=== PATIENT | female | born 1955 | race Caucasian/White ===

== ENCOUNTER 2018-07-12 11:31 | Inpatient (IN) | payer OTHER, SELFPAY ==
[2018-07-12] MEDS ORDERED: Multivitamins, Adult 10 ML, Thiamine HCl 100 MG, Folic Acid 1 MG in Dextrose 5 %-0.45 %... IV SCH (12:00)
[2018-07-12 12:16] LABS: ALT (SGPT) 59 U/L (8-55); AST (SGOT) 158 U/L (5-34); Acetaminophen Less than 6.0 mcg/mL (10.0-30.0); Albumin 2.9 g/dL (3.4-4.8); Alcohol Less than 10 mg/dL (Less than 10); Alkaline Phosphatase 155 U/L (40-150); Anion Gap 26 mmol/L (10-20); BUN (Urea Nitrogen) 25 mg/dL (9.8-20.1); Bilirubin, Total 10.2 mg/dL (0.2-1.2); Calc. Creatinine Clearance 0 mL/min (70-130); Calcium 8.4 mg/dL (7.8-10.44); Carbon Dioxide 23 mmol/L (23-31); Chloride 88 mmol/L (98-107); Estimated GFR-MDRD 44; Globulin 4.6 g/dL (2.4-3.5); Glucose 137 mg/dL (80-115); Lipase 155 U/L (8-78); Protein, Total 7.5 g/dL (6.0-8.3); Salicylate Less than 8.0 mg/dL (15.0-30.0); Sodium 135 mmol/L (136-145)
[2018-07-12 12:20] LABS: Bilirubin Large (Negative); Blood, Urine Large (Negative); Clarity Cloudy (Clear); Glucose, Urine (Dipstick) Negative (Negative); Leukocyte Trace (Negative); Nitrite Negative (Negative); Protein, Urine (Dipstick) Trace mg/dL (Neg-Trace); pH, Urine 6.5 (5.0-9.0)
[2018-07-12 12:21] LABS: Other Microscopic Description Less than 2 mL rec'd
[2018-07-12 12:30] LABS: Hemoglobin 14.4 g/dL (12.0-16.0); Mean Corpuscular HGB CONC 31.5 g/dL (32.0-36.0); Mean Corpuscular Hemoglobin 30.9 pg (27.0-31.0); Mean Corpuscular Volume 98.3 fL (78.0-98.0); Mean Platelet Volume 9.9 fL (7.4-10.4); Platelet Count 71 thou/uL (130-400); RBC Distribution Width 16.4 % (11.5-14.5); Red Blood Cell (RBC) Count 4.64 mill/uL (4.20-5.40)
[2018-07-12 12:41] LABS: Amphetamine Not Detected (NotDetected); Barbiturates Screen Not Detected (NotDetected); Benzodiazepine Screen Not Detected (NotDetected); Cocaine Metabolite Screen Not Detected (NotDetected); Medtox Control Line Valid? VALID (VALID); Medtox Reader # READER 1; Methadone Not Detected (NotDetected); Methamphetamine Not Detected (NotDetected); Opiate Screen Not Detected (NotDetected); Oxycodone Screen Not Detected (NotDetected); Phencyclidine (PCP) Not Detected (NotDetected); THC/Cannabinoid Screen Not Detected (NotDetected); Tricyclic Screen Not Detected (NotDetected)
[2018-07-12 12:42] LABS: Band 20 % (5-11); Lymphocytes 12 % (21-51); MDiff Complete? YES; Monocytes 9 % (0-10); Neutrophil 56 % (42-75); Nucleated RBC 1 % (0); PLT Morphology Comment Appears Decreased; Polychromasia SLIGHT = 2-3 cells (100X) (0-2/hpf); Reactive Lymphocytes 3 % (0-10)
[2018-07-12] MEDS ORDERED: Lorazepam 2 MG/ML VIAL ONE (12:48)
--- NOTE | 2018-07-12 12:51 | CT ---
HEAD CT WITHOUT CONTRAST: DATE: 07/12/2018. COMPARISON: None. HISTORY: Unresponsive patient, altered mental status. TECHNIQUE: Axial CT imaging obtained at 5 mm intervals from the vertex through the skull base without contrast. FINDINGS: The imaged paranasal sinuses/mastoid air cells are well aerated. No displaced calvarial fracture. N o intracranial hemorrhage, midline shift, mass effect, or ventricular enlargement. IMPRESSION: No intracranial hemorrhage or displaced calvarial fracture. POS: [facility]
--- NOTE | 2018-07-12 12:59 | CT ---
CT CERVICAL SPINE WITHOUT CONTRAST: HISTORY: Altered mental status. COMPARISON: None. FINDINGS: The occipital condyles are intact. The odontoid process is intact. There is moderate narrowing of t he atlantodental interval with erosive changes. No acute fracture or malalignment of the cervical spine. Dense calcifications of the right carotid b ulb. Lung apices are clear. Paraspinal soft tissues demonstrate a nodule along the right neck axial image 35 which would be somewhat laterally located for the expected location of a lymph node. IMPRESSION: 1. No acute fracture or malalignment. 2. Superficial soft tissue nodule somewhat laterally located for a lymph node measuring 7 mm axial i mage 35 for which nonemergent ultrasound may be beneficial if clinically warranted. POS: [facility]
[2018-07-12] MEDS ORDERED: NS 0.9% w/ 40 MEQ KCL 1,000 ML IV SCH (13:00)
--- NOTE | 2018-07-12 13:15 | RAD ---
CHEST 1 VIEW: HISTORY: Altered mental status. COMPARISON: None. FINDINGS: Exam is limited due to overexposure. No acute airspace opacity. No pneumothorax or effusion. The r ight hand projects over the right hemithorax. Cardiac silhouette and mediastinal contours within nor mal limits. No acute displaced rib fracture. IMPRESSION: No acute intrathoracic abnormality given limitations of this exam. POS: [facility]
--- NOTE | 2018-07-12 14:07 | PDOC.FPRHP ---
- History of Present Illness Chief Complaint: AMS History of Present Illness: This is a 62yo F who presents to the ED by EMS after being found unresponsive by family. Patient was last seen normal on . Per EMS, she was found responsive but altered. A bottle of vodka was found and she is a known alcoholic. Due to patient's condition, further history was obtained via the sister who was at the bedside. The sister states that she found the sister only speaking in one word sentences and was very sluggish. The sister also told nursing that she had been going to the liquor store every 2-3 days recently. She states that her sister has struggled with alcoholism for quite some time. She states her sister was hospitalized about 1 year ago for AMS in [place] but did not know the circumstances and her presentation at that time. The patient also had a fall one week ago where she hit her right eyebrow but refused to go to the doctor. ED Course: 40mEq KCl,1mg lorazepam, banana bag, 1L NS - Allergies/Adverse Reactions Allergies Allergy/AdvReac Type Severity Reaction Status Date / Time No Known Drug Allergies Allergy Unverified 07/12/18 11:45 - History PMHx: stage4 liver dz, hep C, depression PSHx: ovarian cyst removal, hysterectomy FHx: unknown Social: per family drinks more than 10 drinks/day unable to obtain other hx - Review of Systems ROS unobtainable: due to mental status - Vital signs BP: 144/75 HR: 92 RR: 20 Tmax: 96.5 Pox: 100% on RA Wt: 49.8kg - Physical Exam Constitutional: other -Constitutional: malnourished, ill appearing female HEENT: other -HEENT: right periorbital hematoma w/ laceration on brow - dried blood present; sclera icteric, MM dry Neck: supple Heart: RRR, normal S1/S2, no murmurs/rubs/gallops, pulses present, no edema -Lungs: diminished breath sounds diffusely Abdomen: soft, non-tender, bowel sounds present, no masses/distention -Abdomen: no ascites present -Neurological: GCS 10, E3V2M5; unable to fully assess due to patient responsiveness -Heme/Lymphatic: multiple bruising on extremities FMR H&P: Results - Labs Result Diagrams: 07/13/18 05:12 07/13/18 05:12 Lab results: WBC 8.0 thou/uL (4.8-10.8) 07/12/18 11:49 Hgb 14.4 g/dL (12.0-16.0) 07/12/18 11:49 Hct 45.7 % (36.0-47.0) 07/12/18 11:49 MCV 98.3 fL (78.0-98.0) H 07/12/18 11:49 Plt Count 71 thou/uL (130-400) L 07/12/18 11:49 Band Neuts % (Manual) 20 % (5-11) H 07/12/18 11:49 Sodium 135 mmol/L (136-145) L 07/12/18 11:49 Potassium 2.0 mmol/L (3.5-5.1) L* 07/12/18 11:49 Chloride 88 mmol/L (98-107) L 07/12/18 11:49 Carbon Dioxide 23 mmol/L (23-31) 07/12/18 11:49 BUN 25 mg/dL (9.8-20.1) H 07/12/18 11:49 Creatinine 1.24 mg/dL (0.6-1.1) H 07/12/18 11:49 Glucose 137 mg/dL (80-115) H 07/12/18 11:49 Calcium 8.4 mg/dL (7.8-10.44) 07/12/18 11:49 Total Bilirubin 10.2 mg/dL (0.2-1.2) H 07/12/18 11:49 AST 158 U/L (5-34) H 07/12/18 11:49 ALT 59 U/L (8-55) H 07/12/18 11:49 Alkaline Phosphatase 155 U/L (40-150) H 07/12/18 11:49 Ammonia 56 umol/L (18-72) 07/12/18 11:49 Serum Total Protein 7.5 g/dL (6.0-8.3) 07/12/18 11:49 Albumin 2.9 g/dL (3.4-4.8) L 07/12/18 11:49 Lipase 155 U/L (8-78) H 07/12/18 11:49 Urine Ketones Trace mg/dL (Negative) H 07/12/18 11:55 Urine Blood Large (Negative) H 07/12/18 11:55 Urine Nitrite Negative (Negative) 07/12/18 11:55 Ur Leukocyte Esterase Trace (Negative) H 07/12/18 11:55 - EKG Interpretation EKG: normal sinus rhythm, biatrial enlargement, ST&T wave abnormality, prolonged QT 486 - Radiology Interpretation CT scan - head Status: report reviewed by me (no abnormalities) FMR H&P: A/P - Problem List (1) Hepatic encephalopathy Current Visit: Yes Status: Acute Code(s): K72.90 - HEPATIC FAILURE, UNSPECIFIED WITHOUT COMA (2) Hypokalemia Current Visit: Yes Status: Acute Code(s): E87.6 - HYPOKALEMIA (3) LEFTY (acute kidney injury) Current Visit: Yes Status: Acute Code(s): N17.9 - ACUTE KIDNEY FAILURE, UNSPECIFIED (4) Thrombocytopenia Current Visit: Yes Status: Acute Code(s): D69.6 - THROMBOCYTOPENIA, UNSPECIFIED (5) Hyperbilirubinemia Current Visit: Yes Status: Acute Code(s): E80.6 - OTHER DISORDERS OF BILIRUBIN METABOLISM (6) 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 Current Visit: Yes Status: Acute Code(s): K70.9 - ALCOHOLIC LIVER DISEASE, UNSPECIFIED (7) Alcoholism /alcohol abuse Current Visit: Yes Status: Acute Code(s): F10.20 - ALCOHOL DEPENDENCE, UNCOMPLICATED - Plan Hepatic encephalopathy 2/2 drug overdose vs alcohol withdrawal vs hypokalemia - Labs: ammonia 56, AST 160, ALT 60 - pt received banana bag and ativan in ED - will obtain ABG - Will give IVF - Will give lactulose enemas Q6hrs while monitoring mental status - ASE protocol initiated Hypokalemia - K 2.0 - Will monitor w/ daily CMP and replace as needed Fall - neg CT spine and brain CT neg Anion Gap - 26 - Will obtain ABG - Will give IVF and monitor Hyperbilirubinemia - Tbili 10.2 - GI consulted in the ED - no further management - Will monitor LEFTY - BUN/Cr 25/.24 - Will give IVF and continue to monitor Thrombocytopenia - plt 71 - likely due to liver dz - Will continue to monitor Hep C - aware, will obtain records to see if pt has been treated Alcohol abuse - see above Depression - aware, Will hold medications for now DISPO: admit to tele inpt CODE: FULL Case discussed with Dr. Longoria FMR H&P: Upper Level - Pertinent history 62F presenting after being found down by family earlier today. She has a history of end stage liver disease 2/2 Hep C and EtOH abuse who has been drinking heavily for at least the last week. EMS reports she had AMS and was brought to the ED. Upon arrival, patient was agitated and was given 1 mg of Ativan. Patient was responsive to simple commands but no history could be obtained during our examination. Sister reports patient was conversing in one word sentences and seemed more confused than normal. She says the patient has been going to the liquor store almost daily. Patient has a laceration above the right eyebrow. Sister reports this was present on of last week and was due to a traumatic fall. - Pertinent findings vital signs are stable- no concern for DT's Gen: fetor hepaticus HEENT: scleral icterus CV: RRR, no murmurs Resp: CTA-B Skin: jaundiced K: 2.0 Cl: 88 BUN/Cr: 25/1.24 T. bili: 10.2 AST/ALT: 158/59 albumin: 2.9 plasma EtOH: less than 10 All imaging negative - Plan Date/Time: 07/12/18 1401 Hepatic encephalopathy: ammonia normal but all other labs and physical exam consistent with end stage liver disease. Continue banana bag, maintenance IVF, lactulose enemas q6h. Once mentation improves we can transition to oral rifaximin. Precipitant likely multifactorial- hypokalemia, increased alcohol intake, and dehydration Hypokalemia: repleted in ED. Will replace BID and monitor with daily labs. Check Mag/Ph LEFTY: unknown prior kidney function. Will have received 3L of IVF from the ED. Monitor with daily labs. BUN is normal so low likelihood for GI bleed. Hyperbilirubinemia: 2/2 end stage liver disease. GI is aware and will follow while hospitalized. No further acute management at this time. I, Igor Clay, have evaluated this patient and agree with findings/plan as outlined by rn international resident. Pertinent changes/additions are listed here. Attending Addendum - Attending Addendum Date/Time: 07/13/18 0815 I personally evaluated the patient and discussed the management with Dr. Clay and Niall on 07/12 in the emergency department. I agree with and repeated the History, Examination, Assessment and Plan documented above with any addition or exceptions noted below. Patient rousable but lethargic. ALBERT. Laceration largely healed by secondary intention with persistent bruising and swelling. PERRL and icteric. RRR s M; CTAB s w/r/r. Abd soft and NTTP. Tx empirically for HE. Replete lytes. Anticipate AG d/t dehydration + chloride responsive dehydration due to what sounds like recent binging. No s/s of hemorrhage but anticipate quite volume down in light of azotemia and likely hemoconcentraion. Hep C with cirrhosis, elevated bili, and likely splenic sequestration. Would recommend RUQ sono and AFP if not done recently. I spoke with sister, Darlene, in detail at bedside. She says her sister has been admitted before for confusion when she lived in [place]. Several months ago they had a discussion and Lily told her that she did not want to be intubated or have compressions, confirming DNAR: NO RESUSCITATION.
[2018-07-12] MEDS ORDERED: Ondansetron PF 4 MG/2 ML Vial IVP PRN (17:34)
[2018-07-12] MEDS ORDERED: Ondansetron ODT 4 MG TAB PO PRN (17:34)
[2018-07-12 17:43] LABS: Phosphorus 2.4 mg/dL (2.3-4.7)
[2018-07-12] MEDS: Lactulose 10 GM/15 ML Oral Solution PR SCH (17:48)
[2018-07-12] MEDS: Lactated Ringer's 1,000 ML IV SCH (18:39)
[2018-07-12] MEDS ORDERED: Potassium Chloride 40 MEQ in Sodium Chloride 0.9% 250 ML 250 ML IVPB SCH (21:30)
[2018-07-12] MEDS ORDERED: Potassium ACETATE 40 MEQ/20 ML VIAL IV SCH (21:30)
[2018-07-13] MEDS: Lactulose 10 GM/15 ML Oral Solution PR SCH ×3 (02:11→09:25)
[2018-07-13 06:13] LABS: ALT (SGPT) 52 U/L (8-55); AST (SGOT) 172 U/L (5-34); Albumin 2.1 g/dL (3.4-4.8); Alkaline Phosphatase 115 U/L (40-150); Anion Gap 17 mmol/L (10-20); BUN (Urea Nitrogen) 18 mg/dL (9.8-20.1); Bilirubin, Total 7.3 mg/dL (0.2-1.2); Calc. Creatinine Clearance 51 mL/min (70-130); Calcium 7.2 mg/dL (7.8-10.44); Carbon Dioxide 19 mmol/L (23-31); Chloride 105 mmol/L (98-107); Estimated GFR-MDRD 65; Glucose 100 mg/dL (80-115); Lipase 191 U/L (8-78); Potassium 2.9 mmol/L (3.5-5.1); Protein, Total 6.1 g/dL (6.0-8.3); Sodium 138 mmol/L (136-145)
[2018-07-13] MEDS ORDERED: Potassium Chloride 40 MEQ in Premix Bag 1 BAG IVPB SCH (06:30)
[2018-07-13 06:51] LABS: Anisocytosis SLIGHT = 6-15 cells (100X) (0-5/hpf); Band 14 % (5-11); Eosinophils 1 % (0-10); Hemoglobin 12.4 g/dL (12.0-16.0); Lymphocytes 22 % (21-51); MDiff Complete? YES; Mean Corpuscular HGB CONC 31.5 g/dL (32.0-36.0); Mean Corpuscular Hemoglobin 32.4 pg (27.0-31.0); Mean Platelet Volume 11.2 fL (7.4-10.4); Monocytes 19 % (0-10); Myelocyte 1 % (0-0); Neutrophil 43 % (42-75); PLT Morphology Comment Appears Decreased; Platelet Count 43 thou/uL (130-400); RBC Distribution Width 16.5 % (11.5-14.5); Red Blood Cell (RBC) Count 3.82 mill/uL (4.20-5.40); White Blood Cell (WBC) Count 6.8 thou/uL (4.8-10.8)
[2018-07-13] MEDS ORDERED: Potassium Chloride 20 MEQ in Premix Bag 1 BAG IVPB SCH (07:00)
--- NOTE | 2018-07-13 07:10 | PDOC.FM ---
- Subjective Subjective: Overnight patient complained of pain on the buttox due to excoriations. Otherwise, patient resting comfortably in bed now. AXOX3. No complaints or concerns. - Objective Vital Signs & Weight: Vital Signs (12 hours) Temp Pulse Resp BP BP Pulse Ox 07/13/18 04:40 130/88 07/13/18 04:25 88 16 130/82 99 07/13/18 00:00 130/82 07/12/18 20:05 98.3 F 87 16 123/59 L 123/59 L 97 Weight Weight 49.487 kg I&O: 07/12/18 07/13/18 07/14/18 06:59 06:59 06:59 Intake Total 1200 Balance 1200 Result Diagrams: 07/13/18 05:12 07/13/18 05:12 Phys Exam - Physical Examination ill appearing female HEENT: PERRLA, moist MMs sclera icteric Neck: supple, full ROM Respiratory: clear to auscultation bilateral Cardiovascular: RRR, no significant murmur, no rub Gastrointestinal: soft, non-tender, no distention, positive bowel sounds Musculoskeletal: no edema, pulses present Neurological: non-focal Psychiatric: normal affect Dx/Plan (1) Hepatic encephalopathy Code(s): K72.90 - HEPATIC FAILURE, UNSPECIFIED WITHOUT COMA Status: Acute (2) Hypokalemia Code(s): E87.6 - HYPOKALEMIA Status: Acute (3) LEFTY (acute kidney injury) Code(s): N17.9 - ACUTE KIDNEY FAILURE, UNSPECIFIED Status: Acute (4) Thrombocytopenia Code(s): D69.6 - THROMBOCYTOPENIA, UNSPECIFIED Status: Acute (5) Hyperbilirubinemia Code(s): E80.6 - OTHER DISORDERS OF BILIRUBIN METABOLISM Status: Acute (6) 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 Code(s): K70.9 - ALCOHOLIC LIVER DISEASE, UNSPECIFIED Status: Acute (7) Alcoholism /alcohol abuse Code(s): F10.20 - ALCOHOL DEPENDENCE, UNCOMPLICATED Status: Acute - Plan Plan: Hepatic encephalopathy 2/2 drug overdose vs alcohol withdrawal vs hypokalemia - Labs: ammonia 56, AST 160, ALT 60 - repeat ammonia 62 - ABG: pH 7.5, CO2 31, bicarb 25 - mIVF, will give banana bag Qdaily, replace electrolytes as needed - Will give lactulose enemas Q6hrs while monitoring mental status; more alert on 07/13; will continue until mental status improved - ASE protocol initiated Hypokalemia - K 2.0->2.9 - Will replace and check 4-6hrs later - Will monitor w/ daily CMP and replace as needed Fall - neg CT spine and brain CT neg Anion Gap - 26 - ABG showing resp alk, will continue to monitor - Will give IVF and monitor Hyperbilirubinemia - Tbili 10.2-> 7.3 - GI consulted in the ED - no further management - Will monitor LEFTY, resolved - BUN/Cr 25/1.24; Cr -> 0.88 - Will give IVF and continue to monitor Thrombocytopenia - plt 71-> 43 - likely due to liver dz - Will continue to monitor Hep C - aware, will obtain records to see if pt has been treated Alcohol abuse - see above Depression - aware, Will hold medications for now DISPO: admit to tele inpt CODE: FULL
[2018-07-13] MEDS ORDERED: Boudreaux's Butt Paste 16% Oin 30 GM TUBE TOP PRN (07:11)
[2018-07-13] MEDS: Potassium Chloride 20 MEQ in Premix Bag 1 BAG IVPB SCH ×2 (08:10→11:00)
[2018-07-13] MEDS: Lactated Ringer's 1,000 ML IV SCH ×2 (08:17→14:44)
[2018-07-13 08:19] LABS: Actual Bicarbonate (HCO3a) 25.8 mEq/L (22-28); Base Excess (BEa) 3.5 mEq/L (-2.0 to +3.0); CO2 Tension 31.4 mmHg (35.0-45.0); Carboxyhemoglobin (COHb) 0.9 gm% (0.0-3.0); Hemoglobin (Hb) 11.6 g/dL (12.0-16.0); pH, Arterial 7.53 (7.35-7.45)
[2018-07-13 08:20] LABS: Calcium, Ionized 0.97 mmol/L (1.12-1.30); Potassium - ABG Lab 1.98 mmol/L (3.70-5.30); Puncture Site RRA
[2018-07-13] MEDS: Pantoprazole 40 MG VIAL IVP SCH (09:27)
[2018-07-13] MEDS: Multivitamins, Adult 10 ML, Folic Acid 1 MG, Thiamine HCl 100 MG in Dextrose 5 %-0.45 %... IV SCH (11:03)
[2018-07-13] MEDS ORDERED: Ketorolac Tromethamine 10 MG TAB PO SCH (12:00)
[2018-07-13 12:47] LABS: Anion Gap 13 mmol/L (10-20); BUN (Urea Nitrogen) 17 mg/dL (9.8-20.1); Calc. Creatinine Clearance 58 mL/min (70-130); Calcium 7.2 mg/dL (7.8-10.44); Carbon Dioxide 22 mmol/L (23-31); Chloride 108 mmol/L (98-107); Estimated GFR-MDRD 76; Glucose 105 mg/dL (80-115); Potassium 3.1 mmol/L (3.5-5.1); Sodium 140 mmol/L (136-145)
[2018-07-13] MEDS: Ketorolac Tromethamine 30 MG/ML VIAL IVP SCH ×2 (12:57→17:12)
--- NOTE | 2018-07-13 13:06 | PRG ---
DATE OF SERVICE: 07/13/2018 ADDENDUM: This is an addendum to the note of Dr. Ivanna Tierney. Ms. Hendrix is a very unfortunate 62-year-old white female with a history of alcoholic cirrhosis. She presented with hepatic encephalopathy. Interestingly, she does not have ascites. We are treating her encephalopathy with lactulose, and this morning, she is mentally more clear than last evening. Job ID: [id number]
[2018-07-13 13:10] LABS: HBCM Index 0.14 S/CO (0-0.79); Hep A IgM AB Non-Reactive (NonReactive); Hep B Surf Ag Non-Reactive S/CO (NonReactive); Hepatitis B Core IgM Abs Non-Reactive (NonReactive)
[2018-07-13] MEDS ORDERED: Potassium Chloride 20 MEQ TAB PO SCH (13:45)
[2018-07-13] MEDS ORDERED: Calcium Citrate 950 MG TAB PO SCH (14:00)
[2018-07-13 15:23] LABS: HBSAg Index 0.29 S/CO (0-0.99)
[2018-07-13 15:25] LABS: Hep A IgM S/CO 0.33 S/CO (0-0.79)
[2018-07-13 16:10] LABS: Hep C IgG Ab Reflex HepC Qnt (NonReactive)
[2018-07-13 16:11] LABS: Hep C Index 7.64 S/CO (0-0.79)
[2018-07-13 18:08] LABS: Anion Gap 17 mmol/L (10-20); BUN (Urea Nitrogen) 17 mg/dL (9.8-20.1); Calc. Creatinine Clearance 54 mL/min (70-130); Calcium 7.3 mg/dL (7.8-10.44); Carbon Dioxide 16 mmol/L (23-31); Chloride 108 mmol/L (98-107); Estimated GFR-MDRD 69; Glucose 116 mg/dL (80-115); Sodium 139 mmol/L (136-145)
[2018-07-13 18:15] LABS: Potassium 2.4 mmol/L (3.5-5.1)
[2018-07-13] MEDS ORDERED: Potassium ACETATE 40 MEQ/20 ML VIAL IV ONE (19:17)
[2018-07-13] MEDS ORDERED: Magnesium Sulfate 4 GM, Potassium Chloride 40 MEQ in Sodium Chloride 0.9% 500 ML IVPB SCH (20:00)
[2018-07-13] MEDS: Rifaximin 550 MG TAB PO SCH (20:38)
[2018-07-13 21:57] LABS: Bilirubin Large (Negative); Blood, Urine Moderate (Negative); Clarity CLOUDY (Clear); Glucose, Urine (Dipstick) Negative (Negative); Leukocyte Small (Negative); Nitrite Positive (Negative); Protein, Urine (Dipstick) Negative (Neg-Trace); Specific Gravity, Urine 1.019 (1.002-1.036)
[2018-07-13 21:59] LABS: Bacteria/HPF None Seen HPF (None Seen)
[2018-07-13 22:03] LABS: Pathc Cast-AUWi Flag 8.28 (0-2.49)
[2018-07-13 22:11] LABS: Transitional Epithelial 0-3 HPF (0-3); Yeast-All Forms None Seen HPF (None Seen)
[2018-07-13 22:12] LABS: Crystals/HPF None Seen HPF (Negative); Hyaline Casts/LPF 0-3 HYALINE CAST LPF (0-3 Hyaline)
[2018-07-14] MEDS: Ketorolac Tromethamine 30 MG/ML VIAL IVP SCH ×2 (00:44→05:44)
[2018-07-14 01:39] LABS: Anion Gap 14 mmol/L (10-20); BUN (Urea Nitrogen) 16 mg/dL (9.8-20.1); Calc. Creatinine Clearance 57 mL/min (70-130); Carbon Dioxide 17 mmol/L (23-31); Chloride 106 mmol/L (98-107); Estimated GFR-MDRD 74; Glucose 110 mg/dL (80-115); Potassium 3.7 mmol/L (3.5-5.1); Sodium 133 mmol/L (136-145)
--- NOTE | 2018-07-14 02:06 | CON ---
DATE OF CONSULTATION: 07/13/2018 REASON FOR CONSULT: Difficult Perez catheter placement per nursing staff. HISTORY OF PRESENT ILLNESS: Ms. Hendrix is a 62-year-old female, admitted to the Family Medicine Service with history of alcohol abuse and hepatic encephalopathy. I reviewed records to obtain history as she is a poor historian. She is a known alcoholic, a bottle of vodka was found at her home. Due to mental status changes, the patient admitted. She was found to have a sacral decubitus ulcer with urinary incontinence, therefore, Perez catheter was ordered by the primary service. Nursing staff attempted multiple attempts, however, unable to place Perez catheter. She denies history of retention. Has been incontinent of urine with mental status changes. PAST MEDICAL HISTORY: Stage IV liver disease, hepatitis C, and depression. PAST SURGICAL HISTORY: Ovarian cyst removal and hysterectomy. FAMILY HISTORY: Unknown. SOCIAL HISTORY: History of alcohol abuse, 10 drinks per day. The patient is a poor historian. Currently, her vital signs are stable. ALLERGIES: NO KNOWN DRUG ALLERGIES. PHYSICAL EXAMINATION: VITAL SIGNS: Stable. GENERAL: The patient has a bright ecchymosis over her orbit. HEART: Regular rate. LUNGS: Clear. ABDOMEN: Soft. EXTREMITIES: No cyanosis, clubbing, or edema. GENITOURINARY: Severe vaginal atrophy. It required 2 nurse assist with me to place a Perez catheter as the patient is somewhat combative. Using finger-guided cyst, I was able to see the urethral meatus, it appeared to be somewhat stenotic. However, with appropriate finger-guide assist, I was able to pass a 16-[place]er Perez catheter without significant issues. No significant postvoid residual. However, urine is anil-colored consistent with her history of liver cirrhosis. LABORATORY DATA: Pertinent labs, white count 6, hemoglobin 12, and platelet count is 43. Creatinine 0.8. Liver enzymes are elevated consistent with cirrhosis. UA on admission, dark yellow, negative nitrites, and trace leukocytes. Urine tox screen demonstrates positive for salicylates and acetaminophen. Plasma alcohol level less than 10. Hepatitis panel demonstrates positive for hepatitis C antibody. IMPRESSION AND PLAN: Ms. Hendrix is a 62-year-old female with history of liver cirrhosis and history of alcohol abuse, admitted for hepatic encephalopathy with thrombocytopenia chronic due to liver disease. 1. Alcoholism, chronic. 2. Sacral decubitus ulcer with urinary incontinence. Primary service requesting indwelling Perez catheter as incontinence is resulting in non-progression of her wound. 3. Bedside procedure: As above, a 16-[place]er Perez catheter was placed. Would leave indwelling Perez catheter, until the patient's mental status is improved. When she has regained her baseline mental status, voiding trial may be initiated per . We will follow wandy landa. Job ID: [id number]
--- NOTE | 2018-07-14 04:57 | CON ---
DATE OF CONSULTATION: 07/13/2018 REASON FOR CONSULTATION: Altered mental status, cirrhosis. CONSULTING PHYSICIAN: Dr. Ivanna Tierney. HISTORY OF PRESENT ILLNESS: The patient is a 62-year-old female with past medical history of chronic hepatitis C infection, depression, alcohol dependence, and presumably alcoholic cirrhosis, initially presenting with complaints of altered mental status. Upon interview of the patient today, she was alert and oriented x2, but unable to contribute meaningful information in terms of her history with the information obtained being primarily from chart review. Per chart review, the patient was found unresponsive by family and ultimately brought to [facility] for evaluation. At the time of evaluation within the ER, she was obtunded and unable to provide any meaningful information. However, per interview with the family, the patient had been continuing to drink significant amount of alcohol despite the diagnosis of cirrhosis with a prior history of being hospitalized in [place] approximately 1 year ago for similar altered mental status, but outcome of that admission is not known at this time. She was ultimately admitted to [facility] for further evaluation and given the high likelihood of hepatic encephalopathy, she was given lactulose enemas with improvement in her mental status. Today, the patient is alert and oriented x2, possibly 3. She is unable to answer meaningful questions to her current clinical status, but as to what led up to her being in the hospital she could not further elucidate. Currently, she denies any nausea, vomiting, fevers, chills, abdominal pain, GI bleeding, dysphagia, odynophagia, constipation, or diarrhea. Per nursing staff, they had been giving her lactulose enemas with some difficulty overnight, but with improvement of her mental status, she has been able to tolerate some oral intake and were transitioning most of her medications over. REVIEW OF SYSTEMS: A 10-category review of systems was obtained with all responses negative except for the pertinent positives as listed in the HPI. PAST MEDICAL HISTORY: As per HPI. PAST SURGICAL HISTORY: Hysterectomy, ovarian cyst removal. FAMILY HISTORY: Unknown. SOCIAL HISTORY: The patient currently denies any tobacco, alcohol, or illicit drug use, but per chart review, the patient was drinking anywhere between 1 to 10 drinks per day with possible vodka consumption. OUTPATIENT MEDICATIONS: Unable to be reviewed. ALLERGIES: NO KNOWN DRUG ALLERGIES. PHYSICAL EXAMINATION: VITAL SIGNS: Temperature 97.8, pulse 82, blood pressure 132/82, respiratory rate 15, and saturating 98% on room air. GENERAL: The patient was lying in bed, in no acute distress, alert and oriented x2. HEENT: Neck is supple. No JVD noted. However, moderate scleral icterus was noted. CARDIOVASCULAR: Regular rate and rhythm with no discernible murmurs, gallops, or rubs. RESPIRATORY: Clear to auscultation bilaterally with no discernible wheezes or rales. ABDOMEN: Normoactive bowel sounds. Soft, nontender, and nondistended. No evidence of abdominal distention or shifting dullness on examination today. EXTREMITIES: No cyanosis, clubbing, or edema. LABORATORY DATA: CBC with a white blood cell count of 6.8, hemoglobin 12.4, hematocrit 39.2, and platelets 43. Chemistry with a sodium of 140, potassium 3.1, chloride 108, CO2 of 22, BUN 17, creatinine 0.77, and glucose 105. AST 172, ALT 52, alkaline phosphatase 115. Total bilirubin 7.3. Albumin 2.1, lipase 191, ammonia 62. IMAGING DATA: CT of the brain obtained on 07/12/2018 showed no intracranial hemorrhage or displaced calvarial fracture contributing to her altered mental status. ASSESSMENT AND PLAN: The patient is a 62-year-old female with past medical history of chronic hepatitis C infection, depression, alcohol dependence/alcoholism, and alcoholic cirrhosis of the liver, presenting with altered mental status, most likely due to hepatic encephalopathy. Cirrhosis. The patient is presenting with prior diagnosis of cirrhosis of liver that the patient states was made approximately 10 years ago. Another diagnosis was made, it is unclear at this time; however, given her thrombocytopenia, and elevated noninvasive markers , (FIB-4 and APRI scores), the likelihood of cirrhosis is high. At this point in time, she is presenting with elevated AST in a 3:1 distribution when compared to ALT consistent with alcohol hepatitis, further contributing to liver dysfunction secondary to cirrhosis. At this time, I am unable to calculate MELD score for Child-Cuellar classification due to lack of INR during this admission, which could provide insight in terms of her long-term prognosis. At this point , I do not see any imaging within the computer system either confirming this cirrhotic morphology or cirrhosis of liver or even possible hepatocellular carcinoma that could have potentially contributed to hepatic encephalopathy and/or altered mental status. At this point in time, she is presenting with decompensated liver disease, given presence of hepatic encephalopathy that is currently responding to lactulose administration. Then, we will require further maintenance as an outpatient beyond this admission. Recommendations; 1. We would obtain serial chemistries daily including bilirubin, CMPs and INRs daily to further evaluate for worsening liver function. 2. We would continue to monitor her mental status with worsening of her mental status despite therapy, possibly indicative of worsening liver function. 3. We would consider obtaining a right upper quadrant ultrasound for evaluation of the liver parenchyma and/or presence of possible hepatocellular carcinoma. Hepatic encephalopathy. The patient is initially presenting with altered mental status in light of prior diagnosis of cirrhosis, consistent with hepatic encephalopathy despite a relatively low ammonia level, now status post obtaining multiple lactulose enemas and significant improvement in her mental status with this therapeutic modality. Given her improvement in mental status and ability to tolerate p.o., lactulose administration by mouth is indicated. 1. We would start the patient on lactulose 30 mL b.i.d. and titrate to the patient having approximately 3 to 4 bowel movements daily. 2. We would continue to monitor the patient's mental status with serial sensorium exams daily. 3. We would avoid any potential hepatotoxin or sedative type medications. Chronic hepatitis C infection. The patient is presenting with stated history of chronic hepatitis C infection with laboratory testing during this admission consistent with hepatitis C antibody; however, prior to any treatment for this particular condition, she would need both viral load and genotype, which can be performed as an outpatient. Recommendations: 1. When the patient discharged from the hospital, would have the patient followup in the GI clinic for evaluation of viral load and genotype prior to treatment initiation. Alcoholic hepatitis. The patient is presenting with a longstanding history of alcohol dependence as well as recent altered mental status, most likely due to hepatic encephalopathy. However, on admission, she was noted to have significantly elevated AST when compared to ALT in approximately 3:1 distribution consistent with alcoholic hepatitis. She also has a significantly elevated total bilirubin consistent with liver dysfunction in association with the alcoholic hepatitis. However, with more conservative measures, her total bilirubin and LFTs are downtrending indicating good response to treatment. Given studies within the recent years showing no additional benefit with either prednisolone or pentoxifylline in cases of alcoholic hepatitis. I would not initiate either treatments at this time, but would continue conservative management as you are doing. Recommendations;. 1. We would continue IV fluid support with thiamine and/or B12 during this admission. Banana bag is not necessarily needed for alcoholic hepatitis. 2. We would obtain serial comprehensive metabolic panels on her daily to assess for resolution of her transaminitis. 3. Withhold any steroids or pentoxifylline in this particular patient's case given lack of literature showing it is a long-term decrease in mortality. We will continue to follow. Please call with any questions. Job ID: [id number] MTDD
[2018-07-14 05:30] LABS: INR-International Normal Ratio 2.6; Prothrombin Time 27.7 SEC (12.0-14.7)
[2018-07-14 06:02] LABS: ALT (SGPT) 48 U/L (8-55); AST (SGOT) 154 U/L (5-34); Albumin 1.8 g/dL (3.4-4.8); Alkaline Phosphatase 120 U/L (40-150); Anion Gap 11 mmol/L (10-20); BUN (Urea Nitrogen) 16 mg/dL (9.8-20.1); Bilirubin, Total 5.9 mg/dL (0.2-1.2); Calc. Creatinine Clearance 62 mL/min (70-130); Carbon Dioxide 18 mmol/L (23-31); Chloride 108 mmol/L (98-107); Estimated GFR-MDRD 82; Globulin 2.9 g/dL (2.4-3.5); Glucose 94 mg/dL (80-115); Protein, Total 4.7 g/dL (6.0-8.3); Sodium 134 mmol/L (136-145)
[2018-07-14 06:07] LABS: Potassium 2.9 mmol/L (3.5-5.1)
[2018-07-14 06:22] LABS: Band 23 % (5-11); Eosinophils 4 % (0-10); Hemoglobin 10.5 g/dL (12.0-16.0); Lymphocytes 37 % (21-51); MDiff Complete? YES; Mean Corpuscular HGB CONC 33.2 g/dL (32.0-36.0); Mean Corpuscular Hemoglobin 33.4 pg (27.0-31.0); Mean Platelet Volume 10.2 fL (7.4-10.4); Monocytes 10 % (0-10); Myelocyte 1 % (0-0); Neutrophil 25 % (42-75); PLT Morphology Comment Appears Decreased; Platelet Count 31 thou/uL (130-400); RBC Distribution Width 16.2 % (11.5-14.5); Red Blood Cell (RBC) Count 3.14 mill/uL (4.20-5.40); White Blood Cell (WBC) Count 5.2 thou/uL (4.8-10.8)
--- NOTE | 2018-07-14 06:50 | PDOC.FM ---
- Subjective Subjective: No overnight events. Patient has no complaints or concerns on exam. - Objective Vital Signs & Weight: Vital Signs (12 hours) Temp Pulse Resp BP BP Pulse Ox 07/14/18 04:00 98.0 F 70 20 95/54 L 95/54 L 07/13/18 20:00 97.6 F 87 18 122/81 122/81 97 07/13/18 19:56 97.9 F 110 H 20 126/60 92 L Weight Admit Weight 48.308 kg Weight 49.487 kg I&O: 07/12/18 07/13/18 07/14/18 06:59 06:59 06:59 Intake Total 1200 Balance 1200 Result Diagrams: 07/14/18 04:50 07/14/18 04:50 Phys Exam - Physical Examination ill appearing female HEENT: PERRLA, moist MMs sclera icteric Neck: supple, full ROM Respiratory: clear to auscultation bilateral Cardiovascular: RRR, no significant murmur, no rub Gastrointestinal: soft, non-tender, no distention, positive bowel sounds Musculoskeletal: no edema, pulses present Neurological: non-focal Psychiatric: A&O x 3 Skin: no rash Dx/Plan (1) Hepatic encephalopathy Code(s): K72.90 - HEPATIC FAILURE, UNSPECIFIED WITHOUT COMA Status: Acute (2) Hypokalemia Code(s): E87.6 - HYPOKALEMIA Status: Acute (3) LEFTY (acute kidney injury) Code(s): N17.9 - ACUTE KIDNEY FAILURE, UNSPECIFIED Status: Acute (4) Thrombocytopenia Code(s): D69.6 - THROMBOCYTOPENIA, UNSPECIFIED Status: Acute (5) Hyperbilirubinemia Code(s): E80.6 - OTHER DISORDERS OF BILIRUBIN METABOLISM Status: Acute (6) 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 Code(s): K70.9 - ALCOHOLIC LIVER DISEASE, UNSPECIFIED Status: Acute (7) Alcoholism /alcohol abuse Code(s): F10.20 - ALCOHOL DEPENDENCE, UNCOMPLICATED Status: Acute - Plan Plan: Hepatic encephalopathy 2/2 drug overdose vs alcohol withdrawal vs hypokalemia - Labs: ammonia 56, AST 160, ALT 60 - repeat ammonia 62 - ABG: pH 7.5, CO2 31, bicarb 25 - mIVF, will give banana bag Qdaily, replace electrolytes as needed - Changed to lactulose PO and rifaximen; pt more alert - ASE protocol initiated - [facility] consulted -pt denies depression/suicidal ideations, but sister concerned and thinks she may be suicidal - Palliative care consulted - symptom management - MELD score: 26 - 19.6% estimated 3 month mortality Hypokalemia - K 2.0->2.9 - Will replace and check 4-6hrs later - Will monitor w/ daily CMP and replace as needed Sacral Decubitus Ulcer - tramdol for pain - colindres placed while wound heals; assisted w/ placement; appreciate recs - Urine cx pending - Wound care consulted Fall - neg CT spine and brain CT neg Anion Gap - ABG showing resp alk, will continue to monitor - Will give IVF and monitor Hyperbilirubinemia - Tbili 10.2-> 7.3 -> 5.9 - GI consulted in the ED - no further management - Will monitor LEFTY, resolved - BUN/Cr 25/1.24; Cr -> 0.88 - Will give IVF and continue to monitor Thrombocytopenia - plt 71-> 43 -> 31 - likely due to liver dz - Will continue to monitor - Will consider plt transfusion Hep C - Hep panel pos for Hep C, negative for Hep A/B - Will order Hep C RNA - GI consulted - appreciate recommendations - RUQ pending to evaluate for carcinoma of liver; AFP pending Alcohol abuse - see above - will counseling center manager cessation - Palliative care consulted Depression - aware, Will hold medications for now - [facility] consulted DISPO: admit to tele inpt CODE: FULL
[2018-07-14] MEDS ORDERED: Potassium Chloride 20 MEQ TAB PO SCH (07:00)
[2018-07-14 08:25] LABS: Phosphorus 1.2 mg/dL (2.3-4.7)
[2018-07-14] MEDS: Pantoprazole 40 MG VIAL IVP SCH (08:58)
[2018-07-14] MEDS: Cyanocobalamin (Vitamin B-12) 1,000 MCG TAB PO SCH (08:58)
[2018-07-14] MEDS: Multivitamins, Adult 10 ML, Folic Acid 1 MG, Thiamine HCl 100 MG in Dextrose 5 %-0.45 %... IV SCH (08:59)
[2018-07-14] MEDS: Rifaximin 550 MG TAB PO SCH (09:01)
--- NOTE | 2018-07-14 09:35 | PRG ---
DATE OF SERVICE: 07/14/2018 SUBJECTIVE: The patient appears to be more alert since I saw her last evening. Coherent, alert, oriented. OBJECTIVE: VITAL SIGNS: Stable. Strict I's and O's are not documented. ABDOMEN: Soft, nontender, nondistended. : Perez catheter draining uneventfully, anil yellow urine. PERTINENT LABORATORY DATA: White count 5, hemoglobin of 10.5, platelet count of 31,000. INR is 2.6. Creatinine is 0.72. UA from Perez catheter, which appears contaminated, 11 to 20 squamous epithelials, nitrite positive, 7 to 10 rbc's, 46 wbc's, no bacteria seen. Culture is pending. IMPRESSION AND PLAN: Ms. Hendrix is a 62-year-old female with: 1. History of stage IV liver disease. 2. Hepatitis C. 3. Alcohol abuse. 4. Current admission due to hepatic encephalopathy. 5. Severe thrombocytopenia due to liver disease, elevated INR, coagulopathy. Perez catheter was requested by Primary Service to divert urine as she is currently incontinent due to mental status changes with sacral decubitus ulcer. She appears to be more alert today. I discussed with the patient that catheter will remain until she is more alert, and able to ambulate out of bed. She denies having issues with incontinence, otherwise. She appears to be more self aware today. Plan is to remove the Perez catheter when patient's mental status is improved, to have bathroom privileges. The Perez catheter was difficult to be placed by nursing staff due to severe vaginal atrophy and mild urethral stenosis, I was able to pass a 16-Tunisian catheter without significant obstruction. Do not remove Perez catheter unless it is okay with . We will follow pliz Job ID: [id number]
--- NOTE | 2018-07-14 10:08 | ULT ---
RIGHT UPPER QUADRANT ULTRASOUND: DATE: 07/14/2018. COMPARISON: None. HISTORY: Hepatitis C, alcohol abuse. TECHNIQUE: Multiplanar, cohen scale, sonographic imaging of the right upper quadrant obtained. FINDINGS: The imaged pancreas is grossly unremarkable. The tail is obscured by bowel gas. The hepatic parenchyma is heterogeneous and echogenic within irregular peripheral margin suspicious f or cirrhosis given history of hepatitis C. Portions of the liver are obscured by bowel gas. There i s small volume perihepatic ascites present. Common bile duct measures 3 mm, within normal limits. Provided imaging of the portal vein demonstrates hepatopetal flow. There is sludge within the gallbladder as well as numerous gallstones. The hooker operator reports a neg ative Roper's sign. Gallbladder wall thickness is upper limits of normal which could be related to liver disease. The right kidney measures 11.2 cm craniocaudal dimension and demonstrates no stone, h ydronephrosis, or mass. There is trace ascites in right lower quadrant. Partially imaged spleen measures up to 12.9 cm. No significant free fluid is seen in the left upper quadrant, left lower quadrant, or midline abdomen. IMPRESSION: 1. Cirrhotic configuration of the liver with right upper quadrant ascites. 2. Gallbladder contains stones and sludge. 3. The hepatic parenchyma could be better assessed via MRI of abdomen with and without contrast. POS: JOSE
[2018-07-14 14:08] LABS: Anion Gap 16 mmol/L (10-20); BUN (Urea Nitrogen) 17 mg/dL (9.8-20.1); Calc. Creatinine Clearance 54 mL/min (70-130); Calcium 7.4 mg/dL (7.8-10.44); Carbon Dioxide 16 mmol/L (23-31); Chloride 105 mmol/L (98-107); Estimated GFR-MDRD 68; Glucose 118 mg/dL (80-115); Sodium 134 mmol/L (136-145)
[2018-07-14 14:21] LABS: Potassium 2.9 mmol/L (3.5-5.1)
--- NOTE | 2018-07-14 14:28 | PRG ---
DATE OF SERVICE: 07/14/2018 SUBJECTIVE: Ms. Hendrix continues to remain alert, a vast improvement over her admission obtundation. Right upper quadrant ultrasound is consistent with probable cirrhosis. We also very much appreciate the recommendations of the GI Service. We are continuing with the lactulose. We are continuing with potassium replacement. Job ID: [id number]
[2018-07-14] MEDS ORDERED: Potassium Chloride 40 MEQ in Sodium Chloride 0.9% 500 ML IVPB SCH (14:45)
[2018-07-14] MEDS: traMADol HCl 50 MG TAB PO PRN (14:56)
--- NOTE | 2018-07-14 15:29 | EKG ---
Test Reason : Blood Pressure : / mmHG Vent. Rate : 095 BPM Atrial Rate : 095 BPM P-R Int : 140 ms QRS Dur : 074 ms QT Int : 486 ms P-R-T Axes : 085 014 071 degrees QTc Int : 610 ms Normal sinus rhythm Biatrial enlargement Prolonged QT Abnormal ECG Confirmed by GILDARDO GRAY, MARTY ([id number]), design editor TASHA POSADA ([id number]) on 07/14/2018 3:28:58 PM Referred By: Confirmed By:MARTY EWING MD
[2018-07-14] MEDS: Potassium Chloride 20 MEQ TAB PO SCH (17:38)
--- NOTE | 2018-07-14 18:28 | PRG ---
DATE OF SERVICE: 07/14/2018 REASON FOR CONSULTATION: Cirrhosis, hepatic encephalopathy. SUBJECTIVE: Per patient and per nursing staff, she has been doing much better today with no acute events or problems overnight. Concerning her sensorium, the nursing staff endorses that she is much more "with it." When compared to yesterday, being able to answer questions appropriately and in proper time. She does have some lower back pain that she complains of today, but feels it is more related to inactivity and remaining in bed all day and rather than in exacerbation of other illness. Currently, she denies any nausea, vomiting, fevers, chills, abdominal pain, GI bleeding, dysphagia, odynophagia, constipation, or diarrhea. She has had approximately three semi-solid bowel movements today with administration of lactulose. OBJECTIVE: VITAL SIGNS: Temperature 98.1, pulse 86, blood pressure 116/60, respiratory rate 16, and saturating 97% on room air. GENERAL: The patient is lying in bed, in no acute distress. Alert and oriented x3/4. CARDIOVASCULAR: Regular rate and rhythm. RESPIRATORY: Clear to auscultation bilaterally. ABDOMEN: Normoactive bowel sounds. Soft, nontender, and nondistended. EXTREMITIES: No cyanosis, clubbing, or edema. LABORATORY DATA: CBC with a white blood cell count of 5.2, hemoglobin 10.5, hematocrit 31.5, and platelets are 31. INR 2.6. Chemistry with a sodium of 134, potassium of 2.9, chloride of 108, CO2 of 18, BUN of 16, creatinine of 0.72, and glucose of 94. AST 154, ALT 48, alkaline phosphatase 120, and total bilirubin 5.9. Calculated MELD score of 26. IMAGING DATA: Abdominal ultrasound obtained on July 14, 2018 showed heterogeneous hepatic parenchyma that was also echogenic with irregular peripheral margin consistent with cirrhotic morphology. There was also small volume perihepatic ascites present. There was no evidence of biliary dilatation. Although, there was sludge within the gallbladder as well as numerous gallstones. There was no evidence of acute or chronic cholecystitis. ASSESSMENT AND PLAN: The patient is a 62-year-old female with past medical history of chronic hepatitis C infection, depression, alcohol dependence/alcoholism and alcoholic cirrhosis of the liver complicated by hepatic encephalopathy, presenting with altered mental status, most likely due to hepatic encephalopathy. Cirrhosis. The patient is presenting with a prior diagnosis of cirrhosis of the liver, per patient, again was made approximately 10 years ago with unknown presentation at that time; however, given the cirrhotic morphology on imaging, thrombocytopenia and elevated noninvasive markers, (FIB-4 and APRI scores), the likelihood of cirrhosis is high. At this point, the etiology of her cirrhosis could be multifactorial, either being by chronic hepatitis C infection versus chronic alcoholism. Given the AST to ALT distribution on this admission, alcoholic hepatitis is likely being further contributing to her further hepatic dysfunction as seen on labs during this admission. At this time given a MELD score of 26, it does carry a poor 90-day prognosis, but will need continued monitoring over the next few days to determine whether or not this improves. Right upper quadrant ultrasound obtained on July 14, 2018 did not show any evidence of hepatocellular carcinoma, but rather only cirrhotic morphology with a minimal amount of perihepatic ascites. Recommendations: 1. We would continue to obtain serial chemistries daily including bilirubin and INR to further evaluate for possible worsening liver function. 2. We would continue serial neurological exams daily for worsening of her altered mental status, which could be a harbinger of worsening liver function. Hepatic encephalopathy. The patient initially presented with altered mental status in light of a diagnosis of cirrhosis that has been responding well to lactulose administration. Currently having approximately three semi-solid bowel movements within the last 24 hours, which does place her at goal therapy for ammonia elimination. Recommendations: 1. We would continue the patient on lactulose 30 mL twice daily and titrate if the patient having approximately 3 to 4 bowel movements daily. 2. Continue to monitor the patient's mental status with serial sensorium exams daily. 3. We would avoid any potential hepatotoxin or sedative type medications. Alcoholic hepatitis. The patient has a longstanding history of alcohol dependence with labs on admission showing AST to ALT distribution of approximately 3:1, consistent with alcoholic hepatitis. She also has a significantly elevated total bilirubin consistent with liver dysfunction and associated with this particular diagnosis. With more conservative measures however, her total bilirubin and LFTs are down trending indicating good response to treatment. At this time, there is no plans to place the patient on any further adjunctive therapies including steroids or pentoxifylline given lack of evidence towards efficacy. Recommendations: 1. We would continue IV fluid support, but I could transfer patient to oral thiamine and/or B12 given her ability to tolerate p.o. at this time. 2. Continue to obtain serial comprehensive metabolic panel daily to assess for resolution of her transaminitis. We will continue to follow. Please call with any questions. Job ID: [id number]
[2018-07-14 19:54] LABS: Anion Gap 12 mmol/L (10-20); BUN (Urea Nitrogen) 16 mg/dL (9.8-20.1); Calc. Creatinine Clearance 54 mL/min (70-130); Calcium 7.4 mg/dL (7.8-10.44); Carbon Dioxide 19 mmol/L (23-31); Chloride 103 mmol/L (98-107); Estimated GFR-MDRD 68; Glucose 90 mg/dL (80-115); Potassium 3.1 mmol/L (3.5-5.1); Sodium 131 mmol/L (136-145)
--- NOTE | 2018-07-15 07:20 | PDOC.FM ---
- Subjective Subjective: No overnight events. 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 Patient is AXOX2 today. patient is able to answer questions appropriately. No other issues or concerns. - Objective Vital Signs & Weight: Vital Signs (12 hours) Temp Pulse Resp BP BP Pulse Ox 07/15/18 04:20 115/70 07/15/18 04:00 98.8 F 99 16 115/70 95 07/15/18 00:30 128/88 07/14/18 19:35 97.7 F 69 15 125/78 125/65 98 07/14/18 19:30 98 Weight Admit Weight 48.308 kg Weight 53.705 kg I&O: 07/14/18 07/15/18 07/16/18 06:59 06:59 06:59 Intake Total 4550 Output Total 550 Balance 4000 Result Diagrams: 07/15/18 07:42 07/15/18 07:42 Phys Exam - Physical Examination ill appearing female HEENT: PERRLA, moist MMs sclera mildly icteric Neck: supple, full ROM Respiratory: clear to auscultation bilateral Cardiovascular: RRR, no significant murmur, no rub Gastrointestinal: soft, non-tender, no distention, positive bowel sounds Musculoskeletal: no edema Neurological: non-focal Psychiatric: normal affect Deviation from normal: AXOX 2 Deviation from normal: buttox excoriations; vascular lesiosn on legs Dx/Plan (1) Hepatic encephalopathy Code(s): K72.90 - HEPATIC FAILURE, UNSPECIFIED WITHOUT COMA Status: Acute (2) Hypokalemia Code(s): E87.6 - HYPOKALEMIA Status: Acute (3) LEFTY (acute kidney injury) Code(s): N17.9 - ACUTE KIDNEY FAILURE, UNSPECIFIED Status: Acute (4) Thrombocytopenia Code(s): D69.6 - THROMBOCYTOPENIA, UNSPECIFIED Status: Acute (5) Hyperbilirubinemia Code(s): E80.6 - OTHER DISORDERS OF BILIRUBIN METABOLISM Status: Acute (6) 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 Code(s): K70.9 - ALCOHOLIC LIVER DISEASE, UNSPECIFIED Status: Acute (7) Alcoholism /alcohol abuse Code(s): F10.20 - ALCOHOL DEPENDENCE, UNCOMPLICATED Status: Acute - Plan Plan: Hepatic encephalopathy 2/2 drug overdose vs alcohol withdrawal vs hypokalemia - Initial Labs: ammonia 56, AST 160, ALT 60 - ABG: pH 7.5, CO2 31, bicarb 25 - Will give oral thiamine and B12 as patient can tolerate PO - Changed to lactulose PO - pt having adequate BMs - ASE protocol initiated - MR consulted -pt denies depression/suicidal ideations, but sister concerned and thinks she may be suicidal - Palliative care consulted - symptom management; CM consulted for discharge planning - GI consulted - appreciat recommendations; MELD score: 27; will continue w/ daily CMP and INR to see if improves - PT/OT consulted Hypokalemia - K 2.0->2.9 - Will replace and check 4-6hrs later - Will monitor w/ daily CMP and replace as needed Sacral Decubitus Ulcer - tramdol for pain - colindres placed while wound heals; assisted w/ placement; appreciate recs. Will call when ready to D/c colindres - Urine cx NTD - Wound care consulted Fall - neg CT spine and brain CT neg Anion Gap - ABG showing resp alk, will continue to monitor - Will give IVF and monitor Hyperbilirubinemia - Tbili 10.2-> 7.3 -> 5.9 - GI consulted in the ED - no further management - Will monitor LEFTY, resolved - BUN/Cr 25/1.24; Cr -> 0.88 - Will give IVF and continue to monitor Thrombocytopenia - plt 71-> 43 -> 31 - likely due to liver dz - Will continue to monitor - Will consider plt transfusion Hep C - Hep panel pos for Hep C, negative for Hep A/B - Will order Hep C RNA - GI consulted - appreciate recommendations - RUQ pending to evaluate for carcinoma of liver; AFP pending Alcohol abuse - see above - will marriage counselor cessation - Palliative care consulted Depression - aware, Will hold medications for now - MR consulted DISPO: admit to tele inpt CODE: FULL
[2018-07-15 07:57] LABS: Hemoglobin 10.7 g/dL (12.0-16.0); Mean Corpuscular HGB CONC 32.3 g/dL (32.0-36.0); Mean Corpuscular Hemoglobin 32.6 pg (27.0-31.0); Mean Platelet Volume 10.7 fL (7.4-10.4); Platelet Count 42 thou/uL (130-400); RBC Distribution Width 16.1 % (11.5-14.5); Red Blood Cell (RBC) Count 3.27 mill/uL (4.20-5.40); White Blood Cell (WBC) Count 9.4 thou/uL (4.8-10.8)
[2018-07-15 08:00] LABS: INR-International Normal Ratio 2.4
[2018-07-15] MEDS: Potassium Chloride 20 MEQ TAB PO SCH ×2 (08:17→17:55)
[2018-07-15] MEDS: Cyanocobalamin (Vitamin B-12) 1,000 MCG TAB PO SCH (08:17)
[2018-07-15] MEDS: Pantoprazole 40 MG VIAL IVP SCH (08:17)
[2018-07-15 08:18] LABS: ALT (SGPT) 56 U/L (8-55); AST (SGOT) 150 U/L (5-34); Albumin 1.8 g/dL (3.4-4.8); Alkaline Phosphatase 174 U/L (40-150); Anion Gap 9 mmol/L (10-20); BUN (Urea Nitrogen) 14 mg/dL (9.8-20.1); Bilirubin, Total 5.3 mg/dL (0.2-1.2); Calc. Creatinine Clearance 66 mL/min (70-130); Calcium 7.1 mg/dL (7.8-10.44); Carbon Dioxide 17 mmol/L (23-31); Chloride 107 mmol/L (98-107); Estimated GFR-MDRD 79; Globulin 3.1 g/dL (2.4-3.5); Glucose 100 mg/dL (80-115); Protein, Total 4.9 g/dL (6.0-8.3); Sodium 129 mmol/L (136-145)
[2018-07-15 08:21] LABS: Band 37 % (5-11); Blast 3 % (0-0); Lymphocytes 29 % (21-51); MDiff Complete? YES; Metamyelocyte 6 % (0-0); Monocytes 3 % (0-10); Myelocyte 2 % (0-0); Neutrophil 14 % (42-75); Nucleated RBC 5 % (0); Reactive Lymphocytes 6 % (0-10); Reflex for Review?? YES
[2018-07-15] MEDS ORDERED: Prevnar 13-Val Conj/PF 0.5 ML SYRINGE IM ONE (09:56)
[2018-07-15] MEDS ORDERED: Adacel (T-DAP) 0.5 ML SYRINGE IM ONE (10:27)
[2018-07-15 10:50] LABS: Phosphorus 1.5 mg/dL (2.3-4.7)
[2018-07-15 13:22] LABS: HIV (1/2) Antibody/Antigen Non-Reactive (NonReactive); HIV 1/2 INDEX 0.23 S/CO (<1.00)
--- NOTE | 2018-07-15 13:47 | PRG ---
DATE OF SERVICE: 07/15/2018 SUBJECTIVE: Ms. Hendrix is resting quietly in bed in no distress. She is alert and oriented. She is in discussions with her family regarding her placement upon discharge. We are continuing lactulose 3 to 4 bowel movements per day. As stated above, her sensorium has much improved over admission. Interestingly, this morning's CBC revealed metamyelocytes, and some blast cells. Although this could be related to her hypersplenism and chronic liver disease, we will ask for a peripheral smear interpretation from Pathology and proceed accordingly. Job ID: [id number]
[2018-07-15 14:42] LABS: Syphilis Antibody Nonreactive (Nonreactive); Syphilis Antibody Index 0.06 S/CO (<1.00 Non-Reactive)
--- NOTE | 2018-07-15 18:21 | PRG ---
DATE OF SERVICE: 07/15/2018 REASON FOR CONSULTATION: Cirrhosis, hepatic encephalopathy. SUBJECTIVE: Per the patient and per nursing staff, the patient was doing well today with no acute events or problems overnight. She has had approximately 2 to 3 semisolid to "smear" bowel movements today with clearing of her mental status as well. Currently, she denies any nausea, vomiting, fevers, chills, abdominal pain, constipation, or diarrhea. OBJECTIVE: VITAL SIGNS: Temperature 97.8, pulse 102, blood pressure 127/64, respiratory rate 17, and saturating 96% on room air. GENERAL: The patient was lying in bed, in no acute distress. Alert and oriented x4. NECK: Supple. No JVD noted. CARDIOVASCULAR: Regular rate and rhythm. No discernible murmurs, gallops, or rubs. RESPIRATORY: Clear to auscultation bilaterally. ABDOMEN: Normoactive bowel sounds. Soft, nontender, and nondistended. EXTREMITIES: No cyanosis, clubbing, or edema. LABORATORY DATA: CBC with a white blood cell count of 9.4, hemoglobin 10.7, hematocrit 33, platelets 42. INR 2.4. Chemistry with a sodium of 129, potassium 4.0, chloride 107, CO2 of 17, BUN 14, creatinine 0.74, glucose 100, AST 150, ALT 56, alkaline phosphatase 174, total bilirubin 5.3, albumin 1.8. IMAGING DATA: No current GI imaging is available for review. ASSESSMENT AND PLAN: The patient is a 62-year-old female with past medical history of chronic hepatitis C infection, depression, alcohol dependence/alcoholism and alcoholic cirrhosis of the liver, complicated by hepatic encephalopathy, presenting with acute hepatic encephalopathy. Cirrhosis: The patient is presenting with a prior diagnosis of cirrhosis of the liver made approximately 10 years ago. However, on this admission, she has had imaging consistent with cirrhotic morphology and when coupled with thrombocytopenia and elevated noninvasive markers is consistent with a diagnosis of cirrhosis. At this point, the etiology of her cirrhosis is most likely due to either chronic hepatitis C infection versus chronic alcoholism versus a combination of the two. Her current MELD score is 27, indicating significant liver dysfunction, which does carry a poor 90-day prognosis. If her MELD score continues to elevate, then it may indicate liver failure, in which case, the definitive therapy would be liver transplantation. However, given her recent alcohol abuse and uninsured status, the likelihood of obtaining a liver transplant is highly unlikely. Recommendations: 1. Would continue to obtain serial chemistries daily along with INR to evaluate for liver function. 2. Continue serial neurological exams daily and if worsening mental status, could be a harbinger of liver failure. Hepatic encephalopathy: The patient initially presented with altered mental status in light of a diagnosis of cirrhosis with slightly elevated ammonia, but has been responding well to lactulose administration with clearing of her sensorium. Currently having approximately 2 to 3 bowel movements per day while on lactulose 30 mL twice daily. Recommendations: 1. Continue lactulose 30 mL twice daily and titrate to having approximately 3 to 4 bowel movements daily. 2. Continue to monitor the patient's mental status. 3. Avoid any potential hepatotoxin or sedative type medications. Alcoholic hepatitis: The patient has a longstanding history of alcohol dependence with labs on admission showing an AST to ALT distribution of approximately 3 to 1, consistent with acute alcoholic hepatitis. During the course of this hospitalization, she has had stabilization of her transaminases, but downtrending total bilirubin, which is suggestive of improvement, but I would have like to seen it drop further during this admission thus far. Recommendations: 1. Would continue IV fluid support as well as advancing the patient's diet as tolerated. Would highly recommend a high-protein low-sodium diet given the cirrhotic diagnosis. 2. Continue to trend transaminases. We will continue to follow. Please call with any questions. Job ID: [id number]
[2018-07-16 05:27] LABS: INR-International Normal Ratio 2.4; Prothrombin Time 26.4 SEC (12.0-14.7)
[2018-07-16 05:33] LABS: #Basophils 0.1 thou/uL (0.0-0.2); #Eosinphils 0.1 thou/uL (0.0-0.7); #Lymphocytes 4.2 thou/uL (1.20-3.40); #Monocytes 1.3 thou/uL (0.11-0.59); #Neutrophils 4.3 thou/uL (1.40-6.50); %Eosinophils 1.2 % (0.0-10.0); %Lymphocytes 41.6 % (21.0-51.0); %Monocytes 13.2 % (0.0-10.0); Hemoglobin 9.9 g/dL (12.0-16.0); Mean Corpuscular Hemoglobin 32.4 pg (27.0-31.0); Mean Platelet Volume 8.8 fL (7.4-10.4); Platelet Count 41 thou/uL (130-400); RBC Distribution Width 16.6 % (11.5-14.5); Red Blood Cell (RBC) Count 3.06 mill/uL (4.20-5.40); White Blood Cell (WBC) Count 10.1 thou/uL (4.8-10.8)
[2018-07-16 05:38] LABS: ALT (SGPT) 52 U/L (8-55); AST (SGOT) 135 U/L (5-34); Alkaline Phosphatase 147 U/L (40-150); Anion Gap 11 mmol/L (10-20); BUN (Urea Nitrogen) 11 mg/dL (9.8-20.1); Bilirubin, Total 5.8 mg/dL (0.2-1.2); Calc. Creatinine Clearance 64 mL/min (70-130); Calcium 7.3 mg/dL (7.8-10.44); Carbon Dioxide 17 mmol/L (23-31); Chloride 106 mmol/L (98-107); Estimated GFR-MDRD 77; Globulin 2.8 g/dL (2.4-3.5); Glucose 108 mg/dL (80-115); Protein, Total 4.8 g/dL (6.0-8.3); Sodium 129 mmol/L (136-145)
--- NOTE | 2018-07-16 06:25 | PDOC.FM ---
- Subjective Subjective: No events overnight. patient complaining of tenderness in shoulders and buttox, mildly improved since yesterday. Patient states medication is helping. She is AXOX2. Patient able to states name and but not sure of location or date. - Objective Vital Signs & Weight: Vital Signs (12 hours) Temp Pulse Resp BP BP BP Pulse Ox 07/16/18 04:00 98.9 F 111 H 20 126/66 126/66 95 07/16/18 00:00 121/66 07/15/18 23:46 99.9 F H 107 H 20 121/66 93 L 07/15/18 19:40 98.5 F 113 H 16 137/73 137/73 97 Weight Admit Weight 48.308 kg Weight 53.932 kg I&O: 07/14/18 07/15/18 07/16/18 06:59 06:59 06:59 Intake Total 4550 990 Output Total 550 625 Balance 4000 365 Result Diagrams: 07/16/18 04:55 07/16/18 04:55 Phys Exam - Physical Examination ill appearing female HEENT: PERRLA, moist MMs mildly scleric icteric Respiratory: clear to auscultation bilateral Cardiovascular: RRR Gastrointestinal: soft, non-tender, no distention, positive bowel sounds Musculoskeletal: no edema Neurological: non-focal, moves all 4 limbs Deviation from normal: AXOX2 Dx/Plan (1) Hepatic encephalopathy Code(s): K72.90 - HEPATIC FAILURE, UNSPECIFIED WITHOUT COMA Status: Acute (2) Hypokalemia Code(s): E87.6 - HYPOKALEMIA Status: Acute (3) LEFTY (acute kidney injury) Code(s): N17.9 - ACUTE KIDNEY FAILURE, UNSPECIFIED Status: Acute (4) Thrombocytopenia Code(s): D69.6 - THROMBOCYTOPENIA, UNSPECIFIED Status: Acute (5) Hyperbilirubinemia Code(s): E80.6 - OTHER DISORDERS OF BILIRUBIN METABOLISM Status: Acute (6) 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 Code(s): K70.9 - ALCOHOLIC LIVER DISEASE, UNSPECIFIED Status: Acute (7) Alcoholism /alcohol abuse Code(s): F10.20 - ALCOHOL DEPENDENCE, UNCOMPLICATED Status: Acute - Plan Plan: Hepatic encephalopathy 2/2 drug overdose vs alcohol withdrawal vs hypokalemia - Initial Labs: ammonia 56, AST 160, ALT 60 - Will give oral thiamine and B12 qD as patient can tolerate PO - Continue lactulose PO - pt having adequate BMs - ASE protocol initiated - MHMR consulted -pt denies depression/suicidal ideations, but sister concerned and thinks she may be suicidal - Palliative care consulted - symptom management; CM consulted for discharge planning - trying to get approval while medicaid pending is proving difficult to place patient in a facility - GI consulted - appreciate recommendations; MELD score: 27; will continue w/ daily CMP and INR to see if improves. Will continue w/ IVF, lactulose, serial mental status exams. Will start high protein, low sodium diet. - PT/OT consulted Hypokalemia, resolved - K 2.0->2.9 -> 5 - Will replace and check 4-6hrs later - Will monitor w/ daily CMP and replace as needed Sacral Decubitus Ulcer - tramdol for pain - colindres placed while wound heals; assisted w/ placement; appreciate recs. Will call when ready to D/c colindres - Urine cx NTD - Wound care consulted Fall - neg CT spine and brain CT neg Anion Gap - ABG showing resp alk, will continue to monitor - Will give IVF and monitor Hyperbilirubinemia - Tbili 10.2-> 7.3 -> 5.9 - GI consulted in the ED - no further management - Will monitor LEFTY, resolved - BUN/Cr 25/1.24; Cr -> 0.88 - Will give IVF and continue to monitor Thrombocytopenia - plt 71-> 43 -> 31 -> 41 - likely due to liver dz - Will continue to monitor - Will consider plt transfusion Hep C - Hep panel pos for Hep C, negative for Hep A/B - Will order Hep C RNA - pending - GI consulted - appreciate recommendations - RUQ showed evidence of cirrhosis and small ascites; AFP neg - HIV/syphilis neg Alcohol abuse - see above - will corrections counselor cessation - Palliative care consulted Depression - aware, Will hold medications for now - MHMR consulted DISPO: continue to monitor mental status, discharge planning CODE: FULL
[2018-07-16] MEDS: Cyanocobalamin (Vitamin B-12) 1,000 MCG TAB PO SCH (08:53)
[2018-07-16] MEDS: Potassium Chloride 20 MEQ TAB PO SCH ×2 (08:53→17:09)
--- NOTE | 2018-07-16 09:06 | PRG ---
DATE OF SERVICE: 07/16/2018 SUBJECTIVE: The patient is more alert, cooperative, and oriented x2. Vital signs are stable. Urine output is anil. Perez catheter is secured. Urine culture from Perez catheter is negative for infection. Microscopic hematuria noted with catheter specimen. Creatinine is 0.7. White count 10, hemoglobin 9.9, and platelet count is 41,000. INR is 2.4. IMPRESSION AND PLAN: Ms. Hendrix is a 62-year-old female admitted for; 1. Hepatic encephalopathy. 2. History of stage IV liver disease. 3. Hepatitis C history. 4. Alcohol abuse. 5. Coagulopathy, thrombocytopenia due to liver disease. 6. Urology consultation was obtained due to difficult Perez catheter placement. she does have severe vaginal atrophy, had mild urethral stenosis, in which a 16-[place] Perez catheter was able to be placed by the finger guided assist. patient appears to be still bedbound, more over the patient states that she cannot control her stool and has not been out of bed. continue Perez catheter for now. I recommend the patient have PT consult to increase her activity out of bed. When she is ambulatory, with bathroom privileges, discontinue Perez for a voiding trial. will follow up p.r.n. Primary Service may contact , if the patient is ready for discharge to have the catheter removed. I do not recommend the patient to be discharged with an indwelling Perez catheter. will follow p.r.n. [facility] covering me this weekend. Job ID: [id number] MTDD
[2018-07-16 10:29] LABS: HCV log10 2.663 (.); Hep C PCR-Quant 460 IU/mL (.)
--- NOTE | 2018-07-16 12:08 | PRG ---
DATE OF SERVICE: 07/16/2018 SUBJECTIVE: Ms. Hendrix is resting quietly in no distress. She is at times confused, but right now, is alert and oriented x2. We are awaiting decision regarding her placement. Clinically, she is unchanged and stable. Job ID: [id number]
[2018-07-16] MEDS: traMADol HCl 50 MG TAB PO PRN (17:10)
--- NOTE | 2018-07-16 20:24 | PRG ---
DATE OF SERVICE: 07/16/2018 REASON FOR CONSULTATION: Cirrhosis, hepatic encephalopathy. SUBJECTIVE: Per nursing staff and patient, she is doing well today with no acute events or problems overnight. She had approximately 2 bowel movements this morning that were soft/semi-solid in consistency. On sensorium test this morning, the patient was alert and oriented x3 (the patient thought she was at [facility]). Currently, she denies any nausea, vomiting, fevers, chills, abdominal pain, constipation, or diarrhea; however, she does continue to state that she has lower back pain, where she has been "sticking to the mattress." She is currently being treated for sacral decubitus ulcer with wound care management forthcoming. OBJECTIVE: VITAL SIGNS: Temperature 98.9, pulse 107, blood pressure 139/73, respiratory rate 17, saturating 93% on room air. GENERAL: The patient is lying in bed, in no acute distress, alert and oriented x3. CARDIOVASCULAR: Tachycardic rate, but regular rhythm. RESPIRATORY: Clear to auscultation bilaterally. ABDOMEN: Normoactive bowel sounds. Soft, nontender, nondistended. EXTREMITIES: No cyanosis, clubbing, or edema. LABORATORY DATA: CBC with a white blood cell count of 10.1, hemoglobin 9.9, hematocrit 30.9, and platelets 41. INR 2.4. Chemistry with a sodium of 129, potassium 5, chloride 106, CO2 of 17, BUN 11, creatinine 0.76, glucose 108, AST 135, ALT 52, alkaline phosphatase 147, total bilirubin 5.8. IMAGING DATA: No current GI imaging is available for review. ASSESSMENT AND PLAN: The patient is a 62-year-old female with past medical history of chronic hepatitis C infection, depression, alcohol dependence/alcoholism, and alcoholic cirrhosis of the liver, complicated by hepatic encephalopathy, presenting with acute hepatic encephalopathy. Cirrhosis. 1. The patient is presenting with a diagnosis of cirrhosis based on cirrhotic morphology, thrombocytopenia, and elevated noninvasive markers consistent with the diagnosis. At this point, the etiology of her cirrhosis is most likely due to chronic hepatitis C infection versus chronic alcoholism versus combination of the two. Her current MELD score is 27 indicating a poor 90-day prognosis. If her MELD score continues to elevate, then it may indicate liver failure, in which case the definitive therapy would be a liver transplantation, however, given her recent alcohol abuse and uninsured status, the likelihood of obtaining a liver transplant is unlikely. Recommendations: 1. Continue to obtain serial chemistries along with daily INR to evaluate for liver function (especially total bilirubin). 2. Continue serial neurological exams daily and if worsening mental status, it could be a harbinger of liver failure. Hepatic encephalopathy. 1. The patient initially presented with altered mental status, that has been responding well to lactulose administration, currently having approximately 2 to 3 bowel movements per day while on lactulose 30 mL b.i.d. Recommendations: 1. We would continue lactulose 30 mL b.i.d. and titrate for 3 to 4 bowel movements daily. Alcoholic hepatitis. 1. The patient has a longstanding history of alcohol dependence with labs on admission consistent with a diagnosis of alcoholic hepatitis, however, based on her LFTs from this morning, her transaminases are downtrending indicating probable response to more conservative management. At this time, no indications for steroid therapy or pentoxifylline administration or plan, especially in light of a sacral decubitus ulceration and possible infection. Recommendations: 1. Continue more conservative management with IV fluid support as well as advancing the patient's diet as tolerated with a high-protein low-sodium diet. 2. Continue the transaminases. Sacral decubitus ulceration. 1. The patient has been experiencing a slight up-trend in her white blood cell count as well as alkaline phosphatase and decreased CO2, which is concerning for infection and acidosis. At this point, the most likely reason for these things would be sacral decubitus ulceration. Wound Care has been consulted for further management of this condition. Recommendations: 1. Agree with consultation of Wound Care for management of the sacral decubitus ulceration. 2. We will continue to monitor the patient clinically as well as labs for possible signs of infection/bacteremia. We will continue to follow. Please call with any questions. Job ID: [id number]
--- NOTE | 2018-07-17 06:07 | PDOC.FM ---
- Subjective Subjective: Pt reports good rest overnight, reports 3+ BMs in the last 24hrs. denies abdominal pain. No complaints at this time. no fever/chills, no abdominal pain, no nausea - Objective MAR Reviewed: Yes Vital Signs & Weight: Vital Signs (12 hours) Temp Pulse Resp BP BP BP Pulse Ox 07/17/18 04:20 118/72 07/17/18 04:00 98.9 F 95 20 118/72 96 07/16/18 19:30 98.3 F 94 20 123/63 123/63 96 Weight Admit Weight 48.308 kg Weight 53.932 kg I&O: 07/15/18 07/16/18 07/17/18 06:59 06:59 06:59 Intake Total 4550 990 640 Output Total 550 625 400 Balance 4000 365 240 Result Diagrams: 07/16/18 04:55 07/16/18 04:55 Phys Exam - Physical Examination Constitutional: NAD HEENT: moist MMs, sclera anicteric Neck: no nodes, no JVD Respiratory: no wheezing, clear to auscultation bilateral Cardiovascular: RRR, no significant murmur Gastrointestinal: non-tender, positive bowel sounds Musculoskeletal: no edema, pulses present Neurological: normal sensation, moves all 4 limbs Psychiatric: normal affect, A&O x 3 Skin: no rash, normal turgor Dx/Plan (1) LEFTY (acute kidney injury) Code(s): N17.9 - ACUTE KIDNEY FAILURE, UNSPECIFIED Status: Acute (2) Alcoholism /alcohol abuse Code(s): F10.20 - ALCOHOL DEPENDENCE, UNCOMPLICATED Status: Acute (3) 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 GI consulted - appreciate recommendations MELD score: 27. Pt denies depression/suicidal ideations, but sister concerned and thinks she may be suicidal. CM consulted for discharge planning - trying to get approval while medicaid pending is proving difficult to place patient in a facility. P- continue oral B1 and B12 daily as patient can tolerate PO - Continue lactulose PO - ASE protocol initiated - MHMR consulted - - Palliative care consulted - symptom management - will continue w/ daily CMP and INR. - PT/OT consulted - await placement per CM Hypokalemia, resolved - K 2.0->2.9 -> 5 - Will monitor w/ daily CMP and replace as needed Sacral Decubitus Ulcer - tramdol for pain - colindres placed while wound heals; assisted w/ placement; appreciate recs. Will call when ready to D/c colindres once pt is ambulatory with bathroom privileges - Urine cx NTD - Wound care consulted Fall - neg CT spine and brain CT neg Anion Gap - resolved Hyperbilirubinemia - Tbili 10.2-> 7.3 -> 5.9 - GI consulted in the ED - no further management - Will monitor LEFTY, resolved - BUN/Cr 25/1.24; Cr -> 0.88 Thrombocytopenia - plt 71-> 43 -> 31 -> 41 - likely due to liver dz - Will continue to monitor Hep C - Hep panel pos for Hep C, negative for Hep A/B - GI consulted - appreciate recommendations - RUQ showed evidence of cirrhosis and small ascites; AFP neg - HIV/syphilis neg Alcohol abuse - see above - will counselor at law cessation - Palliative care consulted Depression - aware, Will hold medications for now - MHMR consulted DISPO: continue to monitor mental status, discharge planning per CM CODE: FULL
[2018-07-17 07:35] LABS: Prothrombin Time 23.1 SEC (12.0-14.7)
[2018-07-17 07:48] LABS: ALT (SGPT) 50 U/L (8-55); AST (SGOT) 125 U/L (5-34); Albumin 1.9 g/dL (3.4-4.8); Alkaline Phosphatase 144 U/L (40-150); Anion Gap 10 mmol/L (10-20); BUN (Urea Nitrogen) 10 mg/dL (9.8-20.1); Calc. Creatinine Clearance 77 mL/min (70-130); Calcium 7.2 mg/dL (7.8-10.44); Carbon Dioxide 17 mmol/L (23-31); Chloride 107 mmol/L (98-107); Estimated GFR-MDRD Greater than 90; Globulin 2.9 g/dL (2.4-3.5); Glucose 77 mg/dL (80-115); Potassium 5.8 mmol/L (3.5-5.1); Protein, Total 4.8 g/dL (6.0-8.3); Sodium 128 mmol/L (136-145)
[2018-07-17] MEDS: Potassium Chloride 20 MEQ TAB PO SCH ×2 (08:15→16:38)
[2018-07-17] MEDS: Cyanocobalamin (Vitamin B-12) 1,000 MCG TAB PO SCH (08:16)
--- NOTE | 2018-07-17 23:20 | PRG ---
DATE OF SERVICE: 07/17/2018 REASON FOR CONSULTATION: Cirrhosis, hepatic encephalopathy. SUBJECTIVE: Today, the patient states that she is doing well with no acute events or problems overnight. Per my conversation with her today, this is the most coherent that I have seen on examination thus far during this hospitalization, she was still alert and oriented x3, but otherwise answering questions appropriately with no particular pauses. She continues to have increased lower back pain and stated the wound care service had not come by to evaluate her as of yet. Currently, she denies any nausea, vomiting, fevers, chills, abdominal pain, constipation, or diarrhea. OBJECTIVE: VITAL SIGNS: Temperature 98.6, pulse 104, blood pressure 117/67, respiratory rate 17, saturating 97% on room air. GENERAL: The patient is lying in bed, in no acute distress. Alert and oriented x3. CARDIOVASCULAR: Tachycardic rate, but regular rhythm. RESPIRATORY: Clear to auscultation bilaterally. ABDOMEN: Normoactive bowel sounds. Soft, nontender, and nondistended. EXTREMITIES: No cyanosis, clubbing, or edema. LABORATORY DATA: INR 2.0. Chemistry with a sodium of 128, potassium 5.8, chloride 107, CO2 of 17, BUN 10, creatinine 0.64, glucose 77, AST 125, ALT 50, alkaline phosphatase 144, total bilirubin 6. IMAGING DATA: No current GI imaging is available for review. ASSESSMENT AND PLAN: The patient is a 62-year-old female with past medical history of chronic hepatitis C infection, depression, alcohol dependence/alcoholism, and alcoholic cirrhosis of the liver complicated by hepatic encephalopathy, presenting with acute hepatic encephalopathy. Cirrhosis. 1. The patient is presenting with a diagnosis of cirrhosis based on cirrhotic morphology, thrombocytopenia, and elevated noninvasive markers consistent with diagnosis. At this point, the etiology of her cirrhosis is most likely due to chronic hepatitis C infection versus chronic alcoholism versus a combination of the two. Current calculation of MELD score for her is 27 indicating a poor 90-day prognosis, but stable when compared to the last 2 days. Recommendations: 1. Would continue to obtain serial chemistries along with daily INR to evaluate for liver function. 2. Continue serial neurological exams daily, and if exhibiting worsening mental status, could be a harbinger of acute liver failure. Hepatic encephalopathy. 1. The patient initially presented with altered mental status that responded well to lactulose administration, now having approximately 2 to 3 bowel movements per day while on lactulose 30 mL b.i.d. Recommendations: 1. Would continue lactulose 30 mL b.i.d. and titrate to approximately 3 to 4 bowel movements daily for ammonia elimination. Alcoholic hepatitis. 1. The patient has a longstanding history of alcohol dependence/abuse with labs on admission consistent with a diagnosis of alcoholic hepatitis based on the AST to ALT distribution of 3:1. Based on her most recent labs with her LFTs were down trending, but has since stalled slightly, which may indicate continued inflammation, but also may indicate just poor hepatic reserve given her history of cirrhosis. At this time, no indications for steroid therapy or pentoxifylline administration. Our plan especially in light of sacral decubitus ulceration and possible infection. Recommendations: 1. Continue more conservative management with IV fluid support as well as advancing the patient's diet. 2. Continue to trend transaminases for resolution of her alcoholic hepatitis. At this point, the patient's clinical status is fairly stable. We will continue to follow peripherally. Please call with an additional questions with the patient to follow up in the GI Clinic within 2 to 3 weeks of discharge. Job ID: [id number]
[2018-07-18] MEDS: traMADol HCl 50 MG TAB PO PRN ×2 (02:55→15:20)
[2018-07-18 05:30] LABS: INR-International Normal Ratio 1.9; Prothrombin Time 21.6 SEC (12.0-14.7)
[2018-07-18 05:43] LABS: ALT (SGPT) 51 U/L (8-55); AST (SGOT) 125 U/L (5-34); Alkaline Phosphatase 154 U/L (40-150); Anion Gap 9 mmol/L (10-20); BUN (Urea Nitrogen) 8 mg/dL (9.8-20.1); Bilirubin, Total 5.5 mg/dL (0.2-1.2); Calc. Creatinine Clearance 75 mL/min (70-130); Calcium 7.7 mg/dL (7.8-10.44); Carbon Dioxide 16 mmol/L (23-31); Chloride 104 mmol/L (98-107); Estimated GFR-MDRD Greater than 90; Glucose 95 mg/dL (80-115); Potassium 5.3 mmol/L (3.5-5.1); Sodium 124 mmol/L (136-145)
--- NOTE | 2018-07-18 06:31 | PDOC.FM ---
- Subjective Subjective: Pt reports feeling better this AM. reports only 1 bm in last 24hrs though there are 3 documented. Pt reports she continues to be a little "shaky" on her feet. no fever/no chills, no sob no cough - Objective MAR Reviewed: Yes Vital Signs & Weight: Vital Signs (12 hours) Temp Pulse Resp BP Pulse Ox 07/18/18 04:00 99.5 F 104 H 20 118/68 96 07/18/18 00:00 98 F 106 H 16 137/77 95 07/17/18 20:00 97 Weight Admit Weight 48.308 kg Weight 53.932 kg I&O: 07/16/18 07/17/18 07/18/18 06:59 06:59 06:59 Intake Total 990 640 360 Output Total 625 400 500 Balance 365 240 -140 Result Diagrams: 07/16/18 04:55 07/18/18 04:44 Phys Exam - Physical Examination Constitutional: NAD HEENT: moist MMs, sclera anicteric Neck: no nodes, no JVD Respiratory: no wheezing, clear to auscultation bilateral Cardiovascular: RRR, no significant murmur Gastrointestinal: non-tender, positive bowel sounds Musculoskeletal: no edema, pulses present Neurological: normal sensation, moves all 4 limbs Psychiatric: normal affect Skin: no rash, normal turgor Dx/Plan (1) LEFTY (acute kidney injury) Code(s): N17.9 - ACUTE KIDNEY FAILURE, UNSPECIFIED Status: Acute (2) Alcoholism /alcohol abuse Code(s): F10.20 - ALCOHOL DEPENDENCE, UNCOMPLICATED Status: Acute (3) 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 GI consulted - appreciate recommendations MELD score: 27. CM consulted for discharge planning - trying to get approval while medicaid pending is proving difficult to place patient in a facility. P- continue oral B1 and B12 daily as patient can tolerate PO - Continue lactulose PO - ASE protocol initiated - [facility] consulted - Palliative care consulted - symptom management - will continue w/ daily CMP and INR. - PT/OT consulted - await placement per CM Hypokalemia, resolved - K 2.0->2.9 -> 5 - Will monitor w/ daily CMP and replace as needed Sacral Decubitus Ulcer - tramdol for pain - colindres placed while wound heals; assisted w/ placement; appreciate recs. Will call when ready to D/c colindres once pt is ambulatory with bathroom privileges -PT consulted, additionally will have pt up out of bed TID - Urine cx NTD - Wound care consulted Fall - neg CT spine and brain CT neg Anion Gap - resolved Hyperbilirubinemia - Tbili 10.2-> 7.3 -> 5.9 - GI consulted in the ED - no further management - Will monitor LEFTY, resolved - Cr wnl Thrombocytopenia - plt 71-> 43 -> 31 -> 41 - likely due to liver dz Hep C - Hep panel pos for Hep C, negative for Hep A/B - GI consulted - appreciate recommendations - RUQ showed evidence of cirrhosis and small ascites; AFP neg - HIV/syphilis neg Alcohol abuse - see above - will career counselor cessation - Palliative care consulted Depression - aware, Will hold medications for now - [facility] consulted DISPO: continue to monitor mental status, discharge planning per CM CODE: FULL
[2018-07-18 08:17] LABS: Osmolality, Urine 460 mOsm/kg (300-900)
[2018-07-18] MEDS: Potassium Chloride 20 MEQ TAB PO SCH (08:17)
[2018-07-18] MEDS: Cyanocobalamin (Vitamin B-12) 1,000 MCG TAB PO SCH (08:17)
[2018-07-18 08:32] LABS: Sodium, Urine Less than 20 mmol/L (Not Available)
--- NOTE | 2018-07-19 08:05 | PRG ---
DATE OF SERVICE: ADDENDUM: Please see Dr. Zavala's note, for which I agree. This is a 62-year-old with what seems to be end-stage cirrhosis, here for hepatic encephalopathy and alcohol withdrawals, with recent alcoholic hepatitis, but now day of stay 6, improving a little bit from an encephalopathy standpoint. She is still fairly confused at times. Her sister is actually in the room with her today. The patient had an apartment before this, but mental status and weakness at this point in time, we will keep her from living alone and so it sounds like that we are working on placement at least in the short term until she gets stronger. Unfortunately, it does sound like potentially end-stage liver disease and maybe a hospice candidate, but is stable on current medicines and I am just waiting on discharge planning. Job ID: [id number]
[2018-07-19 08:09] LABS: Prothrombin Time 22.7 SEC (12.0-14.7)
--- NOTE | 2018-07-19 08:13 | CON ---
DATE OF CONSULTATION: ADDENDUM: Please see the note from Dr. Zavala, for which I agree. The patient was seen, evaluated, discussed, and examined with the residents by bedside. Basically, this is a 62-year-old chronic alcoholic, who has end-stage liver disease from alcoholism, and was made DNR by family, who has had altered mental status from hepatic encephalopathy, but we were trying to correct that with lactulose. GI has involved as well and we are trying to get discharge planning setup for her. Has an extremely poor prognosis even short term with how bad her liver is doing. So, really trying to get placement because otherwise she is stable, showing no signs of withdrawal on day 5. Most of her labs are pretty stable, although her hemoglobin has dropped to little bit overtime. She is still confused as far as where she is at today. So we will continue the same beta-blockers and proton-pump inhibitors and medicines and try to keep her liver stable. Her potassium, which was low has been corrected as well. Job ID: [id number]
[2018-07-19 08:21] LABS: ALT (SGPT) 51 U/L (8-55); AST (SGOT) 127 U/L (5-34); Albumin 1.9 g/dL (3.4-4.8); Alkaline Phosphatase 151 U/L (40-150); Anion Gap 8 mmol/L (10-20); BUN (Urea Nitrogen) 8 mg/dL (9.8-20.1); Bilirubin, Total 5.7 mg/dL (0.2-1.2); Calc. Creatinine Clearance 76 mL/min (70-130); Carbon Dioxide 16 mmol/L (23-31); Chloride 102 mmol/L (98-107); Estimated GFR-MDRD Greater than 90; Globulin 3.3 g/dL (2.4-3.5); Glucose 84 mg/dL (80-115); Potassium 4.4 mmol/L (3.5-5.1); Protein, Total 5.2 g/dL (6.0-8.3); Sodium 122 mmol/L (136-145)
--- NOTE | 2018-07-19 08:47 | PRG ---
DATE OF SERVICE: 07/19/2018 SUBJECTIVE: The patient seems alert, oriented. Nursing staff at bedside. Still relates that she has been having bowel movements in her diaper. OBJECTIVE: VITAL SIGNS: Stable. I's and O's, urine output 1275 of concentrated yellow urine. LABORATORY DATA: Urine culture negative. White count of 10 and platelets 41. Creatinine 0.65. IMPRESSION AND PLAN: A 62-year-old female with, 1. History of hepatic encephalopathy. 2. History of stage IV liver disease. 3. Hepatitis C. 4. Alcohol abuse. 5. Coagulopathy, thrombocytopenia. 6. consultation obtained due to difficult Perez catheter placement, the patient with severe vaginal atrophy with mild urethral stenosis. 16-Ivorian Perez catheter placed by with finger guided assist. The patient's mental status appears to be improving, however, still is having bowel movements in her diaper. The patient states that she is "almost there" in which she is able to get out of bed for bowel movements, etc. As her mental status appears to be improving, I anticipate that I should be able to take her Perez catheter out in the next few days. DISPOSITION: Pending await placement. Contact when the patient's disposition is final. Job ID: [id number] MTDD
[2018-07-19] MEDS: Cyanocobalamin (Vitamin B-12) 1,000 MCG TAB PO SCH (09:13)
--- NOTE | 2018-07-19 09:15 | PDOC.FM ---
Addendum entered and electronically signed by Teo Zavala MD 07/19/18 15:19 : Correction: CODE STATUS: DNR-DNI. I clarified with the pt today now that she is of better mental status and confirmed that the pt is DNR-DNI as per her sisters history. Original Note: - Subjective Subjective: Pt reports feeling well overnight with no major neurologic or mental status changes. No complaints at this time. No fever/chills, no abdominal pain , no vomiting - Objective MAR Reviewed: Yes Vital Signs & Weight: Vital Signs (12 hours) Temp Pulse Resp BP BP Pulse Ox 07/19/18 08:00 98.4 F 99 17 118/69 96 07/19/18 04:00 99.7 F H 105 H 20 133/74 94 L Weight Admit Weight 48.308 kg Weight 53.666 kg I&O: 07/18/18 07/19/18 07/20/18 06:59 06:59 06:59 Intake Total 360 1620 Output Total 500 1275 Balance -140 345 Result Diagrams: 07/16/18 04:55 07/23/18 05:24 Phys Exam - Physical Examination Constitutional: NAD HEENT: oral pharynx no lesions Neck: no nodes, supple Respiratory: no wheezing, clear to auscultation bilateral Cardiovascular: RRR, no significant murmur Gastrointestinal: non-tender, positive bowel sounds Musculoskeletal: no edema, pulses present Neurological: normal sensation, moves all 4 limbs Psychiatric: normal affect, A&O x 3 Skin: normal turgor, cap refill <2 seconds Dx/Plan (1) LEFTY (acute kidney injury) Code(s): N17.9 - ACUTE KIDNEY FAILURE, UNSPECIFIED Status: Acute (2) Alcoholism /alcohol abuse Code(s): F10.20 - ALCOHOL DEPENDENCE, UNCOMPLICATED Status: Acute (3) 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 GI consulted - appreciate recommendations MELD score: 27. CM consulted for discharge planning - trying to get approval while medicaid pending is proving difficult to place patient in a facility. P- continue oral B1 and B12 daily as patient can tolerate PO - Continue lactulose PO - ASE protocol initiated - MR consulted - Palliative care consulted - symptom management - will continue w/ daily CMP and INR. - PT/OT consulted - await placement per CM Hypotonic Hyponatremia A- hypotonic hyponatremia. Pt appears to be hypervolemic with excellent urine output. Na 122- likely 2/2 liver disease P- lasix 20mg po - repeat BMP at 1800 Hyperkalemia, resolved - Will monitor w/ daily CMP restart PO potassium at halve the daily dosage Sacral Decubitus Ulcer - tramdol for pain - colindres placed while wound heals; assisted w/ placement; appreciate recs. Will call when ready to D/c colindres once pt is ambulatory with bathroom privileges - PT consulted, additionally will have pt up out of bed TID - Wound care consulted Fall - neg CT spine and brain CT neg Anion Gap - resolved Hyperbilirubinemia - Tbili 10.2-> 7.3 -> 5.9 - GI consulted in the ED - no further management - Will monitor LEFTY, resolved - Cr wnl Thrombocytopenia - plt 71-> 43 -> 31 -> 41 - likely due to liver dz Hep C - Hep panel pos for Hep C, negative for Hep A/B - GI consulted - appreciate recommendations - RUQ showed evidence of cirrhosis and small ascites; AFP neg - HIV/syphilis neg Alcohol abuse - see above - will summer counselor cessation Depression - restart home meds - [facility] consulted DISPO: continue to monitor mental status, discharge planning per CM CODE: FULL Addendum - Attending - Attending Attestation Date/Time: 07/19/18 0453 I personally evaluated the patient and discussed the management with Dr. Zavala and Dr. Barnett I agree with the History, Examination, Assessment and Plan documented above with any addition or exceptions noted below. 62 yo female with history of liver disease, hep C, and alcohol dependance admitted for AMS HD#7 Continues to slowly improved. Colindres still in place. Remains with 3 BM per day. Urology and GI following Vitals, labs, and past imaging reviewed. 1. Hepatic Encephalopathy: Cognative function continues to improve. Now tolerating PO lactulose. Will continue to titrate to 3 to 4 BMs per day. Continue strict I/Os. Discussed d/c options. Will plan for d/c to rehab facility. Patient interested in palliative care. AFP 2.6. 2. Cirrhosis: Confirmed on ultrasound. 3. Alcoholic hepatitis: Discriminant fx = 63.7. GI did not recommend steroids at this time. Continue current treatment. 4. 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 Child-Cuellar = Class C. 5. Hep C: Will follow up with GI outpatient to consider treatment. 6. Alcohol dependance: On ASE protocol. Resent binge drinking. Monitor electrolytes. Continue oral supplement replacement. 7. Hyponatremia: Related to severity of cirrhosis and SIADH related to vasodilation. Indicative of worsening prognosis. Placed on free water restriction that is less than urine output. Use caution with diuretic therapy. Correct other electrolytes. Asymptomatic. Will monitor. Concern if falls below 120. Attempt to improve to 130 if able. No evidence of heptorenal syndrome at present. 8. Urinary incontinence: Colindres magnus in place due to urethral stricture from atrophy. Urology following. 9. Sacral decub: Continue would care. Still in diaper due to weakness. Not able to ambulate to bathroom. BMs causing poor healing. 10. Disuse atrophy: PT daily Dispo: Continue current treatment. Awaiting placement. Sheron
[2018-07-19] MEDS ORDERED: Furosemide 20 MG TAB PO SCH (12:15)
[2018-07-19] MEDS: Potassium Chloride 20 MEQ TAB PO SCH (13:26)
[2018-07-19] MEDS ORDERED: traZODone HCl 50 MG TAB PO SCH (15:00)
[2018-07-19 18:54] LABS: Anion Gap 10 mmol/L (10-20); BUN (Urea Nitrogen) 8 mg/dL (9.8-20.1); Calc. Creatinine Clearance 73 mL/min (70-130); Carbon Dioxide 16 mmol/L (23-31); Chloride 103 mmol/L (98-107); Estimated GFR-MDRD 89; Glucose 109 mg/dL (80-115); Sodium 125 mmol/L (136-145)
[2018-07-19] MEDS: Propranolol 10 MG TAB PO SCH (20:37)
[2018-07-19] MEDS: traZODone HCl 50 MG TAB PO SCH (20:37)
[2018-07-20] MEDS: Cyanocobalamin (Vitamin B-12) 1,000 MCG TAB PO SCH (09:44)
[2018-07-20] MEDS: Propranolol 10 MG TAB PO SCH ×2 (09:46→20:13)
[2018-07-20 09:49] LABS: Anion Gap 10 mmol/L (10-20); BUN (Urea Nitrogen) 8 mg/dL (9.8-20.1); Calc. Creatinine Clearance 70 mL/min (70-130); Calcium 7.9 mg/dL (7.8-10.44); Carbon Dioxide 18 mmol/L (23-31); Chloride 100 mmol/L (98-107); Estimated GFR-MDRD 86; Glucose 121 mg/dL (80-115); Sodium 125 mmol/L (136-145)
[2018-07-20] MEDS: Potassium Chloride 20 MEQ TAB PO SCH (12:09)
--- NOTE | 2018-07-20 12:16 | PDOC.FM ---
- Subjective Subjective: Pt reports feeling better today and that PT worked with her some yesterday. She has no new complaints at this time no fever/chills no sob no cp - Objective MAR Reviewed: Yes Vital Signs & Weight: Vital Signs (12 hours) Temp Pulse Resp BP BP BP Pulse Ox 07/20/18 08:00 98.1 F 76 17 107/64 107/64 97 07/20/18 04:37 97.8 F 78 18 129/73 94 L Weight Admit Weight 48.308 kg Weight 53.184 kg I&O: 07/19/18 07/20/18 07/21/18 06:59 06:59 06:59 Intake Total 1620 1280 Output Total 1275 1350 Balance 345 -70 Result Diagrams: 07/16/18 04:55 07/23/18 05:24 Phys Exam - Physical Examination Constitutional: NAD HEENT: moist MMs Neck: no nodes, supple Respiratory: no wheezing, clear to auscultation bilateral Cardiovascular: RRR, no significant murmur Gastrointestinal: soft, non-tender Musculoskeletal: no edema, pulses present Neurological: non-focal, normal sensation Lymphatic: no nodes Psychiatric: normal affect Skin: no rash, normal turgor Dx/Plan (1) LEFTY (acute kidney injury) Code(s): N17.9 - ACUTE KIDNEY FAILURE, UNSPECIFIED Status: Acute (2) Alcoholism /alcohol abuse Code(s): F10.20 - ALCOHOL DEPENDENCE, UNCOMPLICATED Status: Acute (3) 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 GI consulted - appreciate recommendations MELD score: 27. CM consulted for discharge planning - trying to get approval while medicaid pending is proving difficult to place patient in a facility. P- continue oral B1 and B12 daily as patient can tolerate PO - Continue lactulose PO - ASE protocol initiated - [facility] consulted - Palliative care consulted - symptom management - will continue w/ daily CMP and INR. - PT/OT consulted - await placement per CM Hypotonic Hyponatremia A- hypotonic hyponatremia. Pt appears to be hypervolemic with excellent urine output. Na 122->125- likely 2/2 liver disease. pt status post lasix yesterday and fluid restriction P- BMP this AM -continue fluid restriction Hyperkalemia, resolved - Will monitor w/ daily CMP continue PO potassium Sacral Decubitus Ulcer - tramdol for pain - colindres placed while wound heals; assisted w/ placement; appreciate recs. Will call when ready to D/c colindres once pt is ambulatory with bathroom privileges - PT consulted, additionally will have pt up out of bed TID - Wound care consulted Fall - neg CT spine and brain CT neg Anion Gap - resolved Hyperbilirubinemia - Tbili 10.2-> 7.3 -> 5.9 - GI consulted in the ED - no further management - Will monitor LEFTY, resolved - Cr wnl Thrombocytopenia - plt 71-> 43 -> 31 -> 41 - likely due to liver dz Hep C - Hep panel pos for Hep C, negative for Hep A/B - GI consulted - appreciate recommendations - RUQ showed evidence of cirrhosis and small ascites; AFP neg - HIV/syphilis neg Alcohol abuse - see above - will housing counselor cessation Depression -home meds - [facility] consulted DISPO: continue to monitor mental status, discharge planning per CM CODE: FULL Addendum - Attending - Attending Attestation Date/Time: 07/20/18 1686 I personally evaluated the patient and discussed the management with Dr. Zavala and Dr. Barnett I agree with the History, Examination, Assessment and Plan documented above with any addition or exceptions noted below. 62 yo female with history of liver disease, hep C, and alcohol dependance admitted for AMS HD#7 Mental/cognitive status improved. Colindres still in place. 4 BM per day. Urology and GI following Vitals, labs, and past imaging reviewed. 1. Hepatic Encephalopathy: Cognitive function improved. Continue PO lactulose. Will continue to titrate to 3 to 4 BMs per day. Continue strict I/Os. Will plan for d/c to rehab facility. Patient interested in palliative care. AFP 2.6. 2. Cirrhosis: Confirmed on ultrasound. Alcoholic complicated by Hep C. 3. Alcoholic hepatitis: Discriminant fx = 63.7. GI did not recommend steroids at this time. Continue current treatment. 4. 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 Child-Cuellar = Class C. 5. Hep C: Will follow up with GI outpatient to consider treatment. 6. Alcohol dependance: On ASE protocol. Recent binge drinking prior to admission. No evidence of withdrawal symptoms. Monitor electrolytes. Continue oral supplement replacement. 7. Hyponatremia: Related to severity of cirrhosis and SIADH related to vasodilation. Indicative of worsening prognosis. Placed on free water restriction that is less than urine output -- patient not wanted to meet. Use caution with diuretic therapy. Correct other electrolytes. Asymptomatic. Will monitor. Concern if falls below 120. Attempt to improve to 130 if able. No evidence of heptorenal syndrome at present. Hold medications. 8. 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 Urology following. 9. Sacral decub: Continue would care. Still in diaper due to weakness. Not able to ambulate to bathroom. BMs causing poor healing. 10. Disuse atrophy: PT daily. Ambulating short distances with assistance. Dispo: Continue current treatment. Awaiting placement. Sheron
[2018-07-20] MEDS ORDERED: Furosemide 20 MG TAB PO SCH (17:00)
[2018-07-20] MEDS ORDERED: Potassium Chloride 20 MEQ TAB PO SCH ×2 (17:45→21:45)
[2018-07-20] MEDS: traMADol HCl 50 MG TAB PO PRN (17:47)
[2018-07-20] MEDS: traZODone HCl 50 MG TAB PO SCH (20:13)
[2018-07-21 06:52] LABS: Anion Gap 11 mmol/L (10-20); BUN (Urea Nitrogen) 11 mg/dL (9.8-20.1); Calc. Creatinine Clearance 68 mL/min (70-130); Calcium 7.5 mg/dL (7.8-10.44); Carbon Dioxide 15 mmol/L (23-31); Chloride 104 mmol/L (98-107); Estimated GFR-MDRD 83; Glucose 95 mg/dL (80-115); Potassium 4.6 mmol/L (3.5-5.1); Sodium 125 mmol/L (136-145)
--- NOTE | 2018-07-21 08:35 | PDOC.FM ---
- Subjective Subjective: pt resting comfortably this AM . Reports no new problems and has no complaints or concerns. no fever/chills, no nausea/vomiting - Objective Vital Signs & Weight: Vital Signs (12 hours) Temp Pulse Resp BP BP Pulse Ox 07/21/18 08:00 96/55 L 07/21/18 04:00 99.2 F 70 20 91/50 L 94 L 07/21/18 00:00 99.2 F 78 20 92/63 94 L Weight Admit Weight 48.308 kg Weight 53.07 kg I&O: 07/20/18 07/21/18 07/22/18 06:59 06:59 06:59 Intake Total 1280 1120 Output Total 1750 650 Balance -470 470 Result Diagrams: 07/16/18 04:55 07/23/18 05:24 Phys Exam - Physical Examination Constitutional: NAD HEENT: PERRLA, moist MMs Neck: no nodes, supple Respiratory: no wheezing, clear to auscultation bilateral Cardiovascular: RRR, no significant murmur Gastrointestinal: soft, non-tender Musculoskeletal: pulses present Neurological: normal sensation, moves all 4 limbs Psychiatric: normal affect Skin: no rash, normal turgor Dx/Plan (1) LEFTY (acute kidney injury) Code(s): N17.9 - ACUTE KIDNEY FAILURE, UNSPECIFIED Status: Acute (2) Alcoholism /alcohol abuse Code(s): F10.20 - ALCOHOL DEPENDENCE, UNCOMPLICATED Status: Acute (3) 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 GI consulted - appreciate recommendations MELD score: 27. CM consulted for discharge planning - trying to get approval while medicaid pending is proving difficult to place patient in a facility. P- continue oral B1 and B12 daily as patient can tolerate PO - Continue lactulose PO - ASE protocol initiated - Palliative care consulted - symptom management - will continue w/ daily CMP and INR q3day. - PT/OT consulted - await placement per CM Hypotonic Hyponatremia A- hypotonic hyponatremia. Pt appears to be hypervolemic with excellent urine output. Na 122->125- likely 2/2 liver disease. pt status post lasix two days ago and fluid restriction P- will consider another dose of lasix today -continue fluid restriction Hyperkalemia, resolved - Will monitor w/ daily CMP continue PO potassium BID now as once daily left pt hypokalemic Sacral Decubitus Ulcer A- tramdol for pain. colindres placed while wound heals; assisted w/ placement; appreciate recs. Will call when ready to D/c colindres once pt is ambulatory with bathroom privileges. Pt has documented ability to ambulate with minimal assistance of one individual. P- will consider giving pt ambulate w/ assist priveledges and consider pulling cath today - Wound care consulted Fall - neg CT spine and brain CT neg Anion Gap - resolved Hyperbilirubinemia - Tbili 10.2-> 7.3 -> 5.9 - GI consulted in the ED - no further management - Will monitor LEFTY, resolved - Cr wnl Thrombocytopenia - plt 71-> 43 -> 31 -> 41 - likely due to liver dz Hep C - Hep panel pos for Hep C, negative for Hep A/B - GI consulted - appreciate recommendations - RUQ showed evidence of cirrhosis and small ascites; AFP neg - HIV/syphilis neg Alcohol abuse - see above - will mortgage counselor cessation Depression -home meds - MHMR consulted. pt denies SI DISPO: continue to monitor mental status, discharge planning per CM CODE: FULL Addendum - Attending - Attending Attestation Date/Time: 07/21/18 8405 I personally evaluated the patient and discussed the management with Dr. Zavala and Dr. Barnett I agree with the History, Examination, Assessment and Plan documented above with any addition or exceptions noted below. 62 yo female with history of liver disease, hep C, and alcohol dependance admitted for AMS HD#8 No complaints. 3 BM per day. Urology and GI following Vitals, labs, and past imaging reviewed. 1. Hepatic Encephalopathy: Cognitive function improved. Continue PO lactulose. Will continue to titrate to 3 to 4 BMs per day. Continue strict I/Os. Will plan for d/c to rehab facility. Patient interested in palliative care. AFP 2.6. 2. Cirrhosis: Confirmed on ultrasound. Alcoholic complicated by Hep C. 3. Alcoholic hepatitis: Discriminant fx = 63.7. GI did not recommend steroids at this time. Continue current treatment. AST down trending. 4. 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 Child-Cuellar = Class C. INR stable. Remains hyponatremic. 5. Hep C: Will follow up with GI outpatient to consider treatment. 6. Alcohol dependance: On ASE protocol. Recent binge drinking prior to admission. No evidence of withdrawal symptoms. Monitor electrolytes. Continue oral supplement replacement. 7. Hyponatremia: Related to severity of cirrhosis and SIADH related to vasodilation. Indicative of worsening prognosis. Placed on free water restriction that is less than urine output -- patient not wanted to meet. Use caution with diuretic therapy. Correct other electrolytes. Asymptomatic. Will monitor. Concern if falls below 120. Attempt to improve to 130 if able. No evidence of heptorenal syndrome at present. Hold medications. 8. 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 Urology following. 9. Sacral decub: Continue would care. Still in diaper due to weakness. Not able to ambulate to bathroom. BMs causing poor healing. 10. Disuse atrophy: PT daily. Ambulating short distances with assistance. Dispo: Continue current treatment. Awaiting placement. Sheron
[2018-07-21] MEDS: Cyanocobalamin (Vitamin B-12) 1,000 MCG TAB PO SCH (09:29)
[2018-07-21] MEDS: Potassium Chloride 20 MEQ TAB PO SCH ×2 (09:30→21:17)
[2018-07-21] MEDS: Propranolol 10 MG TAB PO SCH (10:19)
[2018-07-21 12:05] VITALS: BMI 23.6
[2018-07-21] MEDS ORDERED: Magnesium 2 GM/50 ML 2 GM in Premix Bag 1 BAG IVPB SCH (12:15)
[2018-07-21] MEDS ORDERED: Enoxaparin Sodium 40 MG/0.4 ML SYRINGE SC SCH (13:00)
--- NOTE | 2018-07-21 15:34 | CON ---
DATE OF CONSULTATION: NEPHROLOGY CONSULTATION REASON FOR CONSULTATION: Hyponatremia. HISTORY OF PRESENT ILLNESS: This is a 62-year-old female, who was admitted for altered mental status, who was noted to have a sodium of 125 and I was consulted. The patient denies no headache, numbness, tingling, or weakness. Denies any nausea, vomiting, or chest pain. PAST MEDICAL HISTORY: Stage IV liver disease, hepatitis C, depression, ovarian cyst, hysterectomy. SOCIAL HISTORY: Chronic alcohol abuse. FAMILY HISTORY: Negative for ESRD. ALLERGIES: REVIEWED. MEDICATIONS: Home medication list reviewed. Hospital medication list reviewed. REVIEW OF SYSTEMS: A 15-point review of systems was performed and negative except for positives noted above. NECK: No swelling or lumps. NOSE: No epistaxis or discharge. EYES: No diplopia or pain. MUSCULOSKELETAL: No joint pain. NEUROPSYCHIATRIC SYSTEMS: No suicidal ideation. No ideation. SKIN: Denies any rash or ulcer. CONSTITUTIONAL: No fever or chills. OBJECTIVE: GENERAL: The patient is awake, alert, in no acute distress. VITAL SIGNS: Afebrile, pulse 77, breathing 16, and blood pressure 109/61. GENERAL APPEARANCE AND MENTAL STATUS: Fair. HEAD/NECK: Normocephalic. Atraumatic. EYES: EOMI. No deformity. EARS: Clear. No ulcers. NOSE: Intact. No lesions. MOUTH: Clear. No discharge. THROAT: Clear. No exudate. LUNGS: Clear. No crackles. CARDIAC: S1, S2. No rub. ABDOMEN: Benign. Bowel sounds positive. GENITALIA/RECTUM: Perez absent. BACK/EXTREMITIES: Edema 0+. NEUROLOGICAL: Alert and motor intact. LABORATORY DATA: Labs show hemoglobin 9.6, sodium 125. ASSESSMENT: 1. Hyponatremia, most likely because of syndrome of inappropriate antidiuretic hormone secretion. We would recommend 800 mL fluid restriction. 2. Hypertension. 3. Anemia, stable. 4. Medications based on glomerular filtration rate are appropriate. Job ID: [id number]
--- NOTE | 2018-07-21 19:20 | PRG ---
DATE OF SERVICE: 07/21/2018 REASON FOR CONSULTATION: Cirrhosis, hepatic encephalopathy. SUBJECTIVE: Today, the patient states that she has been doing well with no acute events or problems overnight. She has been able to tolerate fluid restriction well thus far with no additional problems. She has also been able to tolerate her meals without any additional problems either. With the administration of lactulose, she is currently having approximately 3 semi-solid bowel movements per day. Currently, she denies any nausea, vomiting, fevers, chills, abdominal pain, constipation, or diarrhea. OBJECTIVE: VITAL SIGNS: Temperature 98.7, pulse 69, blood pressure 95/55, respiratory rate 20, and saturating 95% on room air. GENERAL: The patient is lying in bed, in no acute distress. Alert and oriented x3. CARDIOVASCULAR: Regular rate and rhythm. RESPIRATORY: Clear to auscultation bilaterally. ABDOMEN: Normoactive bowel sounds. Soft, nontender, and nondistended. EXTREMITIES: No cyanosis, clubbing, or edema. LABORATORY DATA: Chemistry with a sodium of 125, potassium 4.6, chloride 104, CO2 of 15, BUN 11, creatinine 0.71, glucose 95, and magnesium 0.8. IMAGING DATA: No current GI imaging is available for review. ASSESSMENT AND PLAN: The patient is a 62-year-old female with past medical history of chronic hepatitis C infection, depression, alcohol dependence/alcoholism, and alcoholic cirrhosis of the liver complicated by hepatic encephalopathy, initially presenting with acute hepatic encephalopathy. 1. Cirrhosis. The patient is presenting with a diagnosis of cirrhosis based on cirrhotic morphology on imaging, thrombocytopenia, and elevated noninvasive markers consistent with a diagnosis. Based on her most recent labs, she has current MELD score of approximately 27 indicating a poor 90-day prognosis. Based on most recent labs, liver function is poor, but stable without further worsening over the last few labs draws. Recommendations: Would continue to obtain chemistries along with daily INR. Continue serial neurological exams. 2. Hepatic encephalopathy. The patient presented with altered mental status that is responding well to lactulose administration and currently having approximately 3 bowel movements per day while on lactulose 30 mL b.i.d. Recommendations: Would continue with current dosing of lactulose at 30 mL b.i.d. 3. Hyponatremia. The patient is presenting with a mild hyponatremia on admission that has been slowly worsening over the course of this hospitalization. She was also noted to have a mild acidosis that has been worsening as well. Given the amount of diarrhea that she has been having (minimal amount), it is unlikely that the diarrhea is contributing to excessive fluid loss contributing to her electrolyte abnormalities at this time. Alcoholic hepatitis and cirrhosis of the liver would contribute some to mild hyponatremia, but would not cause significant hyponatremia seen on her labs downtrending over the last few days. Recommendations: Would consult Nephrology Service for evaluation of this patient and evaluate hyponatremia plus acid-base status with acidosis seen on labs. We will continue to follow. Please call with any questions. Job ID: [id number]
[2018-07-21 19:28] LABS: Anion Gap 10 mmol/L (10-20); BUN (Urea Nitrogen) 11 mg/dL (9.8-20.1); Calc. Creatinine Clearance 66 mL/min (70-130); Carbon Dioxide 17 mmol/L (23-31); Chloride 105 mmol/L (98-107); Estimated GFR-MDRD 81; Glucose 106 mg/dL (80-115); Potassium 4.9 mmol/L (3.5-5.1); Sodium 127 mmol/L (136-145)
[2018-07-21] MEDS: traZODone HCl 50 MG TAB PO SCH (21:17)
[2018-07-22 05:52] LABS: Prothrombin Time 23.1 SEC (12.0-14.7)
[2018-07-22 06:08] LABS: Anion Gap 10 mmol/L (10-20); BUN (Urea Nitrogen) 10 mg/dL (9.8-20.1); Calc. Creatinine Clearance 68 mL/min (70-130); Calcium 7.8 mg/dL (7.8-10.44); Carbon Dioxide 15 mmol/L (23-31); Chloride 109 mmol/L (98-107); Estimated GFR-MDRD 83; Glucose 107 mg/dL (80-115); Magnesium 1.2 mg/dL (1.6-2.6); Potassium 4.8 mmol/L (3.5-5.1); Sodium 129 mmol/L (136-145)
[2018-07-22] MEDS ORDERED: Magnesium 2 GM/50 ML 2 GM in Premix Bag 1 BAG IVPB SCH (08:30)
--- NOTE | 2018-07-22 08:37 | PDOC.FM ---
- Subjective Subjective: reports good rest overnight with continued stable mental status. No complaints at this time. no fever/chills, no cp no palpitations - Objective MAR Reviewed: Yes Vital Signs & Weight: Vital Signs (12 hours) Temp Pulse Resp BP BP Pulse Ox 07/22/18 08:00 98.3 F 77 20 93/53 L 93/53 L 94 L 07/22/18 04:25 94/55 L 07/22/18 04:00 99.5 F 76 20 94/55 L 95 07/22/18 00:00 99.6 F 81 20 108/62 96 Weight Admit Weight 48.308 kg Weight 54.023 kg I&O: 07/21/18 07/22/18 07/23/18 06:59 06:59 06:59 Intake Total 1120 1350 Output Total 650 750 Balance 470 600 Result Diagrams: 07/16/18 04:55 07/23/18 05:24 Phys Exam - Physical Examination Constitutional: NAD HEENT: moist MMs Neck: supple, full ROM Respiratory: no wheezing, no rales Cardiovascular: RRR, no significant murmur Gastrointestinal: soft, non-tender Musculoskeletal: no edema, pulses present Neurological: non-focal, moves all 4 limbs Psychiatric: normal affect Skin: no rash, normal turgor Dx/Plan (1) LEFTY (acute kidney injury) Code(s): N17.9 - ACUTE KIDNEY FAILURE, UNSPECIFIED Status: Acute (2) Alcoholism /alcohol abuse Code(s): F10.20 - ALCOHOL DEPENDENCE, UNCOMPLICATED Status: Acute (3) 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 GI consulted - appreciate recommendations MELD score: 27. CM consulted for discharge planning - trying to get approval while medicaid pending is proving difficult to place patient in a facility. P- continue oral B1 and B12 daily as patient can tolerate PO - Continue lactulose PO - ASE protocol initiated - will continue w/ daily CMP - PT/OT consulted - placement per CM Hyponatremia 2/2 SIADH A- nephro consulted yesterday, recommends fluid restriction to 800ml daily. Appreciate recs. P- 800ml/day fluid restriction Hyperkalemia, resolved - Will monitor w/ daily CMP continue PO potassium BID now as once daily left pt hypokalemic Sacral Decubitus Ulcer A- tramdol for pain. colindres placed while wound heals; assisted w/ placement; appreciate recs. Will call when ready to D/c colindres once pt is ambulatory with bathroom privileges. Pt has documented ability to ambulate with minimal assistance of one individual. but had positive orthostatics P- will consider giving pt ambulate w/ assist priveledges and consider pulling cath today - Wound care consulted Fall - neg CT spine and brain CT neg Anion Gap - resolved Hyperbilirubinemia - Tbili 10.2-> 7.3 -> 5.9 - GI consulted in the ED - no further management - Will monitor LEFTY, resolved - Cr wnl Thrombocytopenia - plt 71-> 43 -> 31 -> 41 - likely due to liver dz Hep C - Hep panel pos for Hep C, negative for Hep A/B - GI consulted - appreciate recommendations - RUQ showed evidence of cirrhosis and small ascites; AFP neg - HIV/syphilis neg Alcohol abuse - see above - 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 pt denies SI DISPO: continue to monitor mental status, discharge planning per CM CODE: FULL Addendum - Attending - Attending Attestation Date/Time: 07/22/18 6903 I personally evaluated the patient and discussed the management with Dr. Zavala and Dr. Barnett I agree with the History, Examination, Assessment and Plan documented above with any addition or exceptions noted below. 62 yo female with history of liver disease, hep C, and alcohol dependance admitted for AMS HD#9 No complaints. 3 BM per day. Urology, Nephro and GI following Vitals, labs, and past imaging reviewed. 1. Hepatic Encephalopathy: Cognitive function improved. Continue PO lactulose. Will continue to titrate to 3 to 4 BMs per day. Continue strict I/Os. Will plan for d/c to rehab facility. Patient interested in palliative care. AFP 2.6. 2. Cirrhosis: Confirmed on ultrasound. Alcoholic complicated by Hep C. 3. Alcoholic hepatitis: Discriminant fx = 63.7. GI did not recommend steroids at this time. Continue current treatment. AST down trending. 4. 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 Child-Cuellar = Class C. INR stable. Remains hyponatremic. 5. Hep C: Will follow up with GI outpatient to consider treatment. 6. Alcohol dependance: On ASE protocol. Recent binge drinking prior to admission. No evidence of withdrawal symptoms. Monitor electrolytes. Continue oral supplement replacement. 7. Hyponatremia: Related to severity of cirrhosis and SIADH related to vasodilation. Indicative of worsening prognosis. Placed on free water restriction that is less than urine output -- patient not wanted to meet. Use caution with diuretic therapy. Correct other electrolytes. Asymptomatic. Will monitor. Concern if falls below 120. Attempt to improve to 130 if able. No evidence of heptorenal syndrome at present. Hold medications. 8. 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 Urology following. 9. Sacral decub: Continue would care. Still in diaper due to weakness. Not able to ambulate to bathroom. BMs causing poor healing. 10. Disuse atrophy: PT daily. Ambulating short distances with assistance. Dispo: Continue current treatment. Awaiting placement. Patient now considering Hospice instead of palliative. Sheron
[2018-07-22] MEDS: Potassium Chloride 20 MEQ TAB PO SCH ×2 (09:50→20:16)
[2018-07-22] MEDS: Cyanocobalamin (Vitamin B-12) 1,000 MCG TAB PO SCH (09:50)
[2018-07-22] MEDS: Enoxaparin Sodium 40 MG/0.4 ML SYRINGE SC SCH (10:01)
[2018-07-22 16:39] LABS: Sodium 130 mmol/L (136-145)
--- NOTE | 2018-07-22 18:29 | PRG ---
DATE OF SERVICE: 07/22/2018 REASON FOR CONSULTATION: Cirrhosis, hepatic encephalopathy. SUBJECTIVE: The patient states that she is doing well today with no acute events or problems overnight. She has been able to tolerate the fluid restriction without any problems, although she is concerned about getting discharged tonight and would preferentially like to stay for tonight. With the administration of lactulose, she has had approximately 3 semi-solid bowel movements within the last 24 hours. Currently, she denies any nausea, vomiting, fevers, chills, abdominal pain, or constipation. OBJECTIVE: VITAL SIGNS: Temperature 98.5, pulse 73, blood pressure 114/81, respiratory rate 18, and saturating 100% on room air. GENERAL: The patient is lying in bed, in no acute distress. Alert and oriented x3. CARDIOVASCULAR: Regular rate and rhythm. RESPIRATORY: Clear to auscultation bilaterally. ABDOMEN: Normoactive bowel sounds. Soft, nontender, and nondistended. EXTREMITIES: No cyanosis, clubbing, or edema. LABORATORY DATA: INR 2.0. Chemistry with a sodium of 129, potassium 4.8, chloride 109, CO2 of 15, BUN 10, creatinine 0.71, glucose 107, and magnesium 1.2. IMAGING DATA: No current GI imaging is available for review. ASSESSMENT AND PLAN: The patient is a 62-year-old female with past medical history of chronic hepatitis C infection, depression, alcohol dependence/alcoholism and alcoholic cirrhosis of the liver, complicated by hepatic encephalopathy, presenting with altered mental status/hepatic encephalopathy. 1. Cirrhosis: The patient is presenting with a diagnosis of cirrhosis with a current MELD score of 27 per most recent labs, indicating a poor 90-day prognosis. Per the most recent laboratory values on liver function, her function is poor, but stable. Recommendations: a. Continue to monitor liver status and would monitor for coagulopathy or worsening hepatic encephalopathy that may be indicative of liver failure. 2. Hepatic encephalopathy: The patient initially presented with altered mental status that has responded well to lactulose administration and currently having approximately 3 bowel movements per day while on lactulose 30 mL b.i.d. Recommendations: a. We will continue current dosing of lactulose at 30 mL b.i.d. b. Would titrate lactulose to target goal of 3 to 4 bowel movements per day. 3. Hyponatremia: The patient is presenting with mild hyponatremia on admission that had been slowly worsening over the course of this hospitalization. This was also accompanied by a moderate acidosis that is still seen on examination today. Given the amount of diarrhea induced by the lactulose administration, it is unlikely that she is having excessive fluid loss contributing to her current electrolyte abnormalities at this time and while cirrhosis of the liver would contribute to some mild hyponatremia due to vasodilation and fluid retention, it would not cause significant hyponatremia that has been seen on labs in the last few days. Nephrology was eventually consulted with assessment made that patient is exhibiting syndrome of inappropriate anti-diuretic hormone. It has been responding well to fluid restriction. Recommendations: a. Would continue fluid restriction as per Nephrology recommendations. We will sign off at this time. Please call with any questions. Job ID: [id number]
--- NOTE | 2018-07-22 19:08 | PRG ---
DATE OF SERVICE: 07/22/2018 SUBJECTIVE: A 62-year-old female, being seen for hyponatremia. The patient denies any nausea, vomiting, or chest pain. OBJECTIVE: CONSTITUTIONAL: The patient is awake and alert. VITAL SIGNS: Afebrile, pulse 73, breathing 16, blood pressure 114/81. GENERAL APPEARANCE AND MENTAL STATUS: Fair. HEAD/NECK: Normocephalic. Atraumatic. EYES: EOMI. No deformity. EARS: Clear. No ulcers. NOSE: Intact. No lesions. MOUTH: Clear. No discharge. THROAT: Clear. No exudate. LUNGS: Clear. No crackles. CARDIAC: S1, S2. No rub. ABDOMEN: Benign. Bowel sounds positive. GENITALIA/RECTUM: Perez absent. BACK/EXTREMITIES: Edema 0+. NEUROLOGICAL: Alert and motor intact. SKIN: LYMPHATICS: LABORATORY DATA: Hemoglobin 9.9. Sodium 130. ASSESSMENT AND PLAN: 1. Chronic kidney disease, stage 2, stable. 2. Hypertension, stable. 3. Hyponatremia, stable. 4. I will sign off on this patient, please reconsult as needed. Job ID: [id number]
[2018-07-22] MEDS: Ibuprofen 600 MG TAB PO PRN (20:16)
[2018-07-22] MEDS: traZODone HCl 50 MG TAB PO SCH (20:17)
[2018-07-23 06:24] LABS: INR-International Normal Ratio 2.2; Prothrombin Time 24.6 SEC (12.0-14.7)
[2018-07-23 06:42] LABS: Anion Gap 11 mmol/L (10-20); BUN (Urea Nitrogen) 10 mg/dL (9.8-20.1); Calc. Creatinine Clearance 56 mL/min (70-130); Calcium 7.9 mg/dL (7.8-10.44); Carbon Dioxide 12 mmol/L (23-31); Chloride 110 mmol/L (98-107); Estimated GFR-MDRD 65; Glucose 108 mg/dL (80-115); Magnesium 1.3 mg/dL (1.6-2.6); Potassium 4.4 mmol/L (3.5-5.1); Sodium 129 mmol/L (136-145)
--- NOTE | 2018-07-23 08:15 | PDOC.FM ---
- Subjective Subjective: Pt feeling well this AM with no new complaints. No concerns at this time. no fever/chills, no AMS, no sob - Objective Vital Signs & Weight: Vital Signs (12 hours) Temp Pulse Resp BP BP BP Pulse Ox 07/23/18 07:30 98.1 F 65 16 80/47 L 88/52 L 95 07/23/18 04:45 90/53 L 07/23/18 03:43 98.0 F 73 20 90/53 L 94 L Weight Admit Weight 48.308 kg Weight 54.023 kg I&O: 07/22/18 07/23/18 07/24/18 06:59 06:59 06:59 Intake Total 1350 950 Output Total 750 800 Balance 600 150 Result Diagrams: 07/16/18 04:55 07/23/18 05:24 Phys Exam - Physical Examination Constitutional: NAD HEENT: moist MMs Neck: supple, full ROM Respiratory: no wheezing, clear to auscultation bilateral Cardiovascular: RRR, no significant murmur Gastrointestinal: non-tender, positive bowel sounds Musculoskeletal: no edema, pulses present Neurological: normal sensation, moves all 4 limbs Psychiatric: normal affect, A&O x 3 Skin: no rash, normal turgor Dx/Plan (1) LEFTY (acute kidney injury) Code(s): N17.9 - ACUTE KIDNEY FAILURE, UNSPECIFIED Status: Acute (2) Alcoholism /alcohol abuse Code(s): F10.20 - ALCOHOL DEPENDENCE, UNCOMPLICATED Status: Acute (3) 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 GI consulted - appreciate recommendations MELD score: 29. CM consulted for discharge planning - complete, pt has bed available when ready for discharge. P- Pt has requested hospice consult yesterday, consult is in - continue oral B1 and B12 daily as patient can tolerate PO - Continue lactulose PO - ASE protocol initiated - will continue w/ daily CMP - PT/OT consulted Hyponatremia 2/2 SIADH A- nephro consulted and signed off. recommends fluid restriction to 800ml daily. Appreciate recs. P- 800ml/day fluid restriction - will consider some lasix this AM with recheck of BMP in afternoon Hyperkalemia, resolved - Will monitor w/ daily CMP continue PO potassium BID now as once daily left pt hypokalemic Sacral Decubitus Ulcer A- tramdol for pain. colindres placed while wound heals; assisted w/ placement; appreciate recs. Will call when ready to D/c colindres once pt is ambulatory with bathroom privileges. Pt has documented ability to ambulate with minimal assistance of one individual. but had positive orthostatics P- will consider giving pt ambulate w/ assist privileges and consider pulling cath today vs bedpan - Wound care consulted Fall - neg CT spine and brain CT neg Anion Gap - resolved Hyperbilirubinemia - Tbili 10.2-> 7.3 -> 5.9 - GI consulted in the ED - no further management - Will monitor LEFTY, resolved - Cr wnl Thrombocytopenia - plt 71-> 43 -> 31 -> 41 - likely due to liver dz Hep C - Hep panel pos for Hep C, negative for Hep A/B - GI consulted - appreciate recommendations - RUQ showed evidence of cirrhosis and small ascites; AFP neg - HIV/syphilis neg Alcohol abuse - see above - school adjustment counselor cessation Depression -home meds - [facility] consulted. pt denies SI DISPO: will consider discharge and discuss Na goals during morning rounds CODE: FULL Addendum - Attending - Attending Attestation Date/Time: 07/23/18 1201 I personally evaluated the patient and discussed the management with Dr. Zavala and Dr. Barnett I agree with the History, Examination, Assessment and Plan documented above with any addition or exceptions noted below. 62 yo female with history of liver disease, hep C, and alcohol dependance admitted for AMS HD#10 Patient appears at baseline. Still with weakness. Colindres removed this AM. Continues to have frequent BMs. Urology, Nephro and GI have signed off. Vitals, labs, and past imaging reviewed. 1. Hepatic Encephalopathy: Resolved. Continue PO lactulose. With goal of 3 to 4 BMs per day. Will plan for d/c to rehab facility today. Patient interested in palliative care vs hospice. AFP 2.6. 2. Cirrhosis: Confirmed on ultrasound. Alcoholic complicated by Hep C. 3. Alcoholic hepatitis: Discriminate fx = 63.7. GI did not recommend steroids at this time. Continue current treatment. AST down trending. GI outpatient if not transitioning to hospice. 4. 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 Child-Cuellar = Class C. INR stable. Remains hyponatremic. 5. Hep C: Will follow up with GI outpatient to consider treatment. But now considering hospice. 6. Alcohol dependance: No evidence of withdrawal symptoms. Continue oral supplement replacement. Recommend cessation. Discussed follow up with outpatient counseling. 7. Hyponatremia: Related to severity of cirrhosis and SIADH related to vasodilation. Indicative of worsening prognosis. Placed on free water restriction that is less than urine output -- patient not wanting to meet. Use caution with diuretic therapy. Correct other electrolytes. Asymptomatic. Concern if falls below 120. Attempt to improve to 130 if able. No evidence of heptorenal syndrome at present. Hold medications. 8. Urinary incontinence: Colindres removed. 9. Sacral decub: Continue would care. Still in diaper due to weakness. Not able to ambulate to bathroom. BMs causing poor healing. 10. Disuse atrophy: PT daily. Ambulating short distances with assistance. Dispo: Continue current treatment. Now with bed available. Specialist signed off. Will d/c to rehab. Patient to decide on palliative vs hospice. Sheron
[2018-07-23] MEDS: Enoxaparin Sodium 40 MG/0.4 ML SYRINGE SC SCH (08:48)
[2018-07-23] MEDS: Cyanocobalamin (Vitamin B-12) 1,000 MCG TAB PO SCH (08:49)
[2018-07-23] MEDS: Potassium Chloride 20 MEQ TAB PO SCH (08:50)
--- NOTE | 2018-07-23 09:19 | PRG ---
DATE OF SERVICE: 07/23/2018 SUBJECTIVE: The patient is alert, awake, ambulatory, disposition near finalized. OBJECTIVE: VITAL SIGNS: T-max of 100. Urine output 950 of concentrated yellow urine. ABDOMEN: Soft, nontender, and nondistended. PERTINENT LABORATORY DATA: Creatinine 0.88. IMPRESSION AND PLAN: 1. A 62-year-old female, admitted with history of alcohol abuse, hepatic encephalopathy. 2. History of stage IV liver disease. 3. Hepatitis C. 4. Coagulopathy secondary to liver disease. 5. consultation obtained previously for Perez catheter placement due to mental status changes, incontinent of urine with sacral decubitus ulcer due to the patient's immobility, encephalopathy. Her mental status has significantly improved. patient is alert, awake. As her mental status has improved, Perez catheter removed this morning. will sign off. Job ID: [id number] MTDD
[2018-07-23] MEDS ORDERED: Furosemide 20 MG TAB PO SCH (11:30)
[2018-07-23] MEDS: Ibuprofen 600 MG TAB PO PRN (11:32)
[2018-07-23 15:12] VITALS: TEMP 98
[2018-07-23 17:52] VITALS: BP 101/64
[2018-07-24] MEDS ORDERED: Magnesium Citrate 300 ML BOT PO SCH (09:00)
--- NOTE | 2018-07-24 11:38 | DIS ---
DATE OF ADMISSION: 07/12/2018 DATE OF DISCHARGE: 07/23/2018 RESIDENT: Teo Zavala MD ADMITTING ATTENDING: Raf Longoria MD DISCHARGE ATTENDING: Azeb Rodriguez MD CONSULTS: 1. Gastroenterology, Dr. Rosas. 2. Nephrology, Dr. Vásquez. 3. Hospice. PROCEDURES: 1. On 07/12/2018, chest x-ray; impression, no acute intrathoracic abnormality given limitations of this exam. 2. On 07/12/2018, brain CT; impression, no intracranial hemorrhage or displaced calvarial fracture. 3. On 07/12/2018, cervical spine CT; impression, no acute fracture or malalignment. Superficial soft tissue nodule is somewhat laterally located for lymph node measuring 7 mm, axial image 35, for which non-emergent ultrasound may be beneficial, if clinically warranted. 4. On 07/14/2018, abdomen ultrasound; impression, cirrhotic configuration of liver with right upper quadrant ascites. Gallbladder contained stones and sludge. The hepatic parenchyma could be better assessed via MRI of abdomen with and without contrast. PRIMARY DIAGNOSIS: Hepatic encephalopathy secondary to cirrhosis due to hepatitis C and alcoholic cirrhotic liver. SECONDARY DIAGNOSES: 1. Hyponatremia. 2. Hyperkalemia. 3. Sacral decubitus ulcer. 4. Fall. 6. Hyperbilirubinemia. 7. Acute kidney injury. 8. Thrombocytopenia. 9. Hepatitis C. 10. Alcohol abuse. 11. Depression. DISCHARGE MEDICATIONS: 1. Trazodone 50 mg p.o. t.i.d. 2. Sertraline 25 mg p.o. daily. 3. Pantoprazole 40 mg p.o. daily. 4. Vitamin B12 of 1000 mcg p.o. daily. 5. Ibuprofen 600 mg p.o. q.8 hours p.r.n. 6. Lactulose 30 mg p.o. b.i.d. 7. Magnesium citrate 300 mg p.o. daily. 8. Potassium chloride 40mg p.o. b.i.d. 9. Thiamine 100 mg p.o. daily. DISCONTINUED MEDICATIONS: 1. Spironolactone 50 mg p.o. daily. 2. Propranolol 10 mg p.o. b.i.d. HISTORY OF PRESENT ILLNESS AND HOSPITAL COURSE: This is a 62-year-old female, who presented to the emergency room from her home after being found down with empty bottles of vodka. The patient had altered mental status on presentation and after intracranial bleed was ruled out or other traumatic events from fall, the patient was admitted for altered mental status and was found to have hepatic encephalopathy secondary to hepatitis C infection and alcoholic cirrhotic liver. The patient was treated with lactulose, vitamin B1, and vitamin B12 and mental status improved greatly over the course of 12-day hospitalization. Once the patient had improved and other medical issues were stabilized, the patient was discharged to [facility] per Case Management's placement with plans for followup with PCP, GI, and Hospice Care. Of note, hospital stay was further complicated by hyponatremia, of which Nephrology was consulted, and the patient was diagnosed with SIADH. This was managed with fluid restriction to 800 mL per day and with few one time doses of Lasix. The patient's hospital stay was also complicated by a sacral decubitus ulcer, for which Wound Care was consulted as well as Urology was consulted, as the patient had a Perez catheter placed with the patient's original altered mental status on presentation. The patient was incontinent and urinating over wound, making healing difficult. With improved mental status, Perez was eventually able to be pulled. Of note, with the patient's liver failure secondary to hepatitis C and alcohol, the patient's MELD score varied between 27 and 29 throughout hospital stay. Conversation was had with the patient regarding her prognosis and the patient verbalized understanding. Conversation was overall well received and the patient expressed desire for hospice care. Hospice was consulted in the hospital, but the patient was unable to see Hospice during hospital stay and made plans for Hospice Care to consult them in [facility]. DISPOSITION: Stable. DISCHARGE INSTRUCTIONS: 1. Location: retirement. 2. Diet: Renal diet. Fluid restriction diet to 800 mL. 3. Activity: As tolerated with physical therapy, ambulate with assist recommended. 4. Followup: Follow up with Dr. Rosas in 2 to 3 weeks, with primary care physician in 7 days. Job ID: [id number] [facility]
== END 2018-07-23 19:10 | DRG 442 ==
LOC: ERS 11:31 → 2NO 17:09
PROVIDERS: ADMIT Emergency Medicine; ATTEND Emergency Medicine
PROC: 0T9B70Z Drainage of Bladder with Drainage Device, Via Natural or Artificial Opening (ICD-10-PCS; principal; 2018-07-14)
DX: K72.90 Hepatic failure, unspecified without coma (principal); N17.9 Acute kidney failure, unspecified; F10.239 Alcohol dependence with withdrawal, unspecified; E22.2 Syndrome of inappropriate secretion of antidiuretic hormone; E87.2 Acidosis; S01.111A Laceration without foreign body of right eyelid and periocular area, initial encounter; K70.31 Alcoholic cirrhosis of liver with ascites; E87.6 Hypokalemia; B18.2 Chronic viral hepatitis C; L89.159 Pressure ulcer of sacral region, unspecified stage; I12.9 Hypertensive chronic kidney disease with stage 1 through stage 4 chronic kidney disease, or unspecified chronic kidney disease; N18.2 Chronic kidney disease, stage 2 (mild); R32 Unspecified urinary incontinence; D69.59 Other secondary thrombocytopenia; N35.92 Unspecified urethral stricture, female; N95.2 Postmenopausal atrophic vaginitis; F32.9 Major depressive disorder, single episode, unspecified; Z66 Do not resuscitate; W19.XXXA Unspecified fall, initial encounter; Y92.009 Unspecified place in unspecified non-institutional (private) residence as the place of occurrence of the external cause
CPT/HCPCS: 36415; 51701; 70450; 71045; 72125; 76705; 80048; 80053; 80074; 80306; 80307; 81003; 81015; 82105; 82140; 82805; 83690; 83735; 83930; 83935; 84100; 84300; 85025; 85060; 85610; 85730; 86780; 87086; 87389; 87522; 90471; 90670; 90715; 93005; 96361; 96365; 96366; 96375; A4353; C9113; G0009; G8978-GP-CN; G8979-GP-CJ; G8987-GO-CK; G8988-GO-CJ; J1650; J1885; J2060; J3411; J3475; J3480; J7042; J7050; P9045